=== PATIENT | female | born 1940 | race Caucasian/White ===

== ENCOUNTER → 2017-02-19 | Outpatient (CLI) | payer MEDICARE, OTHER ==
[~2017-02-19] MED LIST: ASA PO; GABA-528 PO; INHALER FOR ASTHMA; LEVO137T3 PO; OMEP20TA42 PO; TRAMADOL HCL; VALS80TA2 PO
--- NOTE | 2017-02-20 14:31 | RADRPT ---
PROCEDURE: CT abdomen without IV contrast. CLINICAL INDICATION: Abdominal pain. Possible hernia. TECHNIQUE: CT scan of the abdomen without contrast was performed on the [employer] volumetric [address] scanner. The patient was scanned without intravenous contrast. Coronal and sagittal reformatted lety ges were obtained from the axial source images. The CTDI vol is 17.31 mGy and the DLP is 460.81 mGy- cm. COMPARISON: None. FINDINGS: CT abdomen: The lung bases are clear. The heart size is not enlarged and is without pericardial thickening or e ffusion. The liver is normal in size and density and is without focal mass or intrahepatic biliary dilatation . The spleen is normal in size and homogeneous in density. The stomach is grossly unremarkable. T he pancreas as visualized is normal. The gallbladder has been removed. The common bile duct is mil dly dilated which may be physiologic. The adrenal glands are symmetric and normal. The kidneys are symmetrically unremarkable as well. A simple right renal cyst is seen in the midportion measuring 3. 8 x 2.9 cm in size. No renal calculus or obstructive uropathy or mass lesion is seen. The aorta is of normal in caliber. There is no retroperitoneal lymphadenopathy. The domonique hepatis region is clear. The visualized large bowel is stool-filled. The visualized small and large bowel a nd mesentery, as visualized, are otherwise unremarkable. The abdominal wall appears unremarkable. The surrounding osseous structures are unremarkable. No osteolytic or osteoblastic lesion is detect ed. IMPRESSION: 1. No acute pathology in the abdomen. 2. No CT evidence of a hernia. 3. Stool filled large bowel. 4. Status post cholecystectomy with likely physiologic biliary dilatation. RPTAT: HPNM Physician Christianne Date Time Electronically viewed and signed by Physician Christianne on 02/20/2017 14:30 /
== END | disposition home or self-care (01) ==
LOC: C/S 13:43
PROVIDERS: ATTEND Specialist
DX: R10.9 Unspecified abdominal pain (principal)
CPT/HCPCS: 74150

== ENCOUNTER 2017-09-06 11:22 | Emergency (ER) | END 2017-09-06 15:24 | disposition home or self-care (01) | DX: M79.601 Pain in right arm (principal); J45.909 Unspecified asthma, uncomplicated; I10 Essential (primary) hypertension | CPT/HCPCS: 73060; 80053; 84484; 85025; 85610; 85730; 93971; 96374; 96375; 96376; 99285; J1170; J1885; J2270; J2405 ==

== ENCOUNTER 2017-12-05 15:09 | Emergency (ER) | END 2017-12-05 20:39 | disposition left against medical advice (07) ==

== ENCOUNTER 2019-01-28 09:02 | Observation (INO) | payer MEDICARE, OTHER ==
[~2019-01-28] VITALS: Ht 162.6 cm; Wt 71.6 kg
[~2019-01-28 09:02] MED LIST changes: -ASA PO; -INHALER FOR ASTHMA; +NAPR-985 PO; -TRAMADOL HCL
[2019-01-28] MEDS ORDERED: DOCU-144 PO (10:39)
[2019-01-28] MEDS ORDERED: ZOLP10TA5 PO (10:40)
[2019-01-28] MEDS ORDERED: ASPI-817 PO (10:40)
[2019-01-28] MEDS ORDERED: HYDR25TA6 PO (10:41)
[2019-01-28] MEDS ORDERED: OMEP40CA6 PO (10:41)
[2019-01-28] MEDS ORDERED: HYDR-3980 PO (10:41)
[2019-01-28] MEDS ORDERED: LEVO137T3 PO (10:42)
[2019-01-28] MEDS ORDERED: AMLO5TAB4 PO (10:42)
[2019-01-28] MEDS ORDERED: MECL-77 PO (10:43)
[2019-01-28] MEDS ORDERED: GABA-528 PO (10:43)
[2019-01-28] MEDS ORDERED: SENN-120 PO (10:44)
[2019-01-28] MEDS ORDERED: BACL10TA PO (10:44)
[2019-01-28] MEDS ORDERED: POTASSIUM CHLORIDE (SR) 20 MEQ TAB PO STA (12:27)
[2019-01-28] MEDS ORDERED: ONDANSETRON 4 MG INJ IV PRN (12:30)
[2019-01-28] MEDS ORDERED: ACETAMINOPHEN 325 MG TAB PO PRN (12:30)
--- NOTE | 2019-01-28 12:52 | ERD ---
ER Documentation Chief Complaint Chief Complaint chest pain on and off for 4 months, multiple syncopal episodes, from PMD HPI This is a 78-year-old female with a past medical history of hypertension, hyperlipidemia, hypothyroidism, GERD, vertigo, cerebral aneurysm, chronic pain who is presenting with 4 months of waxing and waning midsternal left-sided pressure-like chest pain, shortness of breath and multiple near syncopal events. The patient reports intermittent episodes of feeling very dizzy like she is going to pass out, typically associated with this chest pain. The patient was evaluated in the office today and sent over to the emergency department for admission and cardiology evaluation. The patient reports mild chest pain at this time, but her symptoms have improved since yesterday. The patient denies feeling sick recently. The patient denies fever or chills. The patient has had no headache or vision changes. The patient does not endorse neck or back pain. The patient denies abdominal pain. The patient denies changes to bowel movements or urination. The patient has had no focal deficits. The patient has had no weakness or numbness or tingling to the face or extremities. ROS All systems reviewed and are negative except as per history of present illness. Medications Home Meds Reported Medications Sennosides* (Senna Lax*) 8.6 Mg Tablet, 1 TAB PO DAILY, TAB 01/28/19 Baclofen* (Baclofen*) 10 Mg Tablet, 10 MG PO TID, TAB 01/28/19 Meclizine Hcl* (Meclizine Hcl*) 25 Mg Tablet, 25 MG PO DAILY PRN for DIZZINESS, TAB 01/28/19 Gabapentin* (Gabapentin*) 800 Mg Tablet, 800 MG PO TID, #90 TAB 01/28/19 Levothyroxine Sodium* (Levothyroxine Sodium*) 137 Mcg Tablet, 137 MCG PO BEFORE BREAKFAST, #30 TAB 01/28/19 Amlodipine Besylate* (Norvasc*) 5 Mg Tablet, 5 MG PO DAILY, TAB 01/28/19 Hydrochlorothiazide* (Hydrochlorothiazide*) 25 Mg Tab, 25 MG PO DAILY, #30 TAB 01/28/19 Omeprazole* (Omeprazole*) 40 Mg Capsule.dr, 40 MG PO BID, #30 CAP 01/28/19 Hydrocodone/Acetaminophen ([place] 10-325 Tablet) 1 Each Tablet, 1 EACH PO BID, TAB 01/28/19 Zolpidem Tartrate* (Zolpidem Tartrate*) 10 Mg Tablet, 10 MG PO QHS PRN for INSOMNIA, #30 TAB 01/28/19 Aspirin* (Aspirin* EC) 81 Mg Tablet.dr, 81 MG PO DAILY, TAB 01/28/19 Docusate Sodium* (Colace*) 100 Mg Capsule, 100 MG PO DAILY, #30 CAP 01/28/19 Discontinued Reported Medications Levothyroxine Sodium* (Levothyroxine Sodium*) 137 Mcg Tablet, 137 MCG PO DAILY 03/11/13 Gabapentin* (Gabapentin*) 800 Mg Tablet, 800 MG PO QHS 07/22/11 Omeprazole (Omeprazole) 20 Mg Tablet.dr, 20 MG PO DAILY 07/22/11 Valsartan* (Diovan*) 80 Mg Tablet, 80 MG PO DAILY 07/22/11 Discontinued Scripts Naproxen* (Naprosyn*) 500 Mg Tablet, 500 MG PO BID PRN for PAIN AND/OR INFLAMMATION, #30 TAB Prov:PERRI CARPENTER MD 09/06/17 Allergies Allergies: Coded Allergies: No Known Drug Allergy (Verified Allergy, Unknown, 01/28/19) PMhx/Soc History of Surgery: Yes (RIGHT KNEE, thyroid sx,) Anesthesia Reaction: No Hx Neurological Disorder: Yes (CEREBRAL ANEURYSM) Hx Respiratory Disorders: Yes (ASTHMA) Hx Cardiac Disorders: Yes (HTN) Hx Psychiatric Problems: No Hx Miscellaneous Medical Probl: Yes (DVT ) Hx Alcohol Use: No Hx Substance Use: No Hx Tobacco Use: No FmHx Family History: No diabetes Physical Exam Vitals Vital Signs Date Temp Pulse Resp B/P (MAP) Pulse Ox O2 O2 Flow FiO2 Time Delivery Rate 01/28/19 Nasal 2 11:54 Cannula 01/28/19 97.6 70 20 151/65 98 09:10 (93) Physical Exam Const: No apparent distress, well-developed, well-nourished Head: Normocephalic, Atraumatic Eyes: Normal Conjunctiva. Extraocular movements intact. ENT: Normal External Ears, Nose and Mouth. Neck: Full range of motion. No meningismus. Resp: Clear to auscultation bilaterally, No wheezes, rales or rhonchi Cardio: Regular rate and rhythm. No murmurs, rubs or gallops Abd: Soft, non tender, non distended. Normal bowel sounds Skin: No petechiae or rashes Back: No midline tenderness. No CVA tenderness Ext: No cyanosis, or edema Neur: Awake and alert, oriented 4. Cranial nerves intact. No facial droop. Normal strength, sensation and coordination. Psych: Normal Mood and Affect Result Diagram: 01/28/19 1024 01/28/19 1024 Results 24 hrs Laboratory Tests Test 01/28/19 10:24 White Blood Count 6.5 10^3/ul Red Blood Count 4.63 10^6/ul Hemoglobin 11.6 g/dl Hematocrit 37.3 % Mean Corpuscular Volume 80.6 fl Mean Corpuscular Hemoglobin 25.1 pg Mean Corpuscular Hemoglobin Concent 31.1 g/dl Red Cell Distribution Width 15.8 % Platelet Count 277 10^3/UL Mean Platelet Volume 11.0 fl Immature Granulocytes % 0.500 % Neutrophils % 52.2 % Lymphocytes % 37.0 % Monocytes % 6.6 % Eosinophils % 3.1 % Basophils % 0.6 % Nucleated Red Blood Cells % 0.0 /100WBC Immature Granulocytes # 0.030 10^3/ul Neutrophils # 3.4 10^3/ul Lymphocytes # 2.4 10^3/ul Monocytes # 0.4 10^3/ul Eosinophils # 0.2 10^3/ul Basophils # 0.0 10^3/ul Nucleated Red Blood Cells # 0.0 10^3/ul Sodium Level 144 mmol/L Potassium Level 3.4 mmol/L Chloride Level 108 mmol/L Carbon Dioxide Level 28 mmol/L Anion Gap 8 Blood Urea Nitrogen 13 mg/dl Creatinine 0.68 mg/dl Est Glomerular Filtrat Rate mL/min mL/min Glucose Level 128 mg/dl Calcium Level 9.3 mg/dl Troponin I < 0.012 ng/ml Current Medications Medications Dose Sig/Miriam Start Time Status Last (Trade) Ordered Route PRN Stop Time Admin Dose Reason Admin Ondansetron 4 mg ER BRIDGE 01/28/19 HCl (Zofran PRN IV 12:30 01/29/19 Inj) NAUSEA/VOMITI 12:29 NG 650 mg ER BRIDGE 01/28/19 Acetaminophen PRN PO 12:30 01/29/19 (Tylenol .MILD PAIN 12:29 Tab) 1-3 OR TEMP Potassium 20 meq ONCE STAT 01/28/19 DC Chloride PO 12:27 01/28/19 (Klor-Con 20) 12:34 Procedures/MDM MDM The patient's presentation warrants further investigation. Previous medical records, if available, were reviewed. LABS The patient's laboratory testing was obtained and reviewed. No emergent treatment was required unless described below. CBC: No E/o systemic infection or severe anemia or thrombocytopenia Chemistry: No E/o severe acidosis or alkalosis or renal failure or diabetic ketoacidosis Troponin: No E/o acute ischemia TSH: Pending EKG EKG read by me: Rate/Rhythm: Regular rate and rhythm at a rate of 68 bpm Intervals: Normal [facility]: Normal Impression: No evidence of acute ischemia or arrhythmia IMAGING Imaging and Radiology interpretation reviewed. CXR FINDINGS: The lungs are clear. No focal opacification is seen. No pneumothorax or pleural effusion is seen. The heart size is prominent. Aortic atherosclerosis is present. The osseous structures are grossly unremarkable. Surgical clips are present in the lower neck. IMPRESSION: No evidence of acute cardiopulmonary disease. Cardiomegaly and aortic atherosclerosis. Electronically viewed and signed by .Bi Luis MD, on 01/28/2019 10:28 TREATMENT/DISPOSITION The patient presents for several months of waxing and waning chest pain and reported many syncopal events. The patient was evaluated in the office of her primary care physician who sent the patient here for admission and cardiology evaluation. I do believe this to be appropriate. The patient's EKG and troponin are reassuring. I have low suspicion for acute coronary syndrome. That said, I do feel the patient may benefit from serial assessment. I do not feel the patient requires aspirin emergently. I do not see evidence of any emergent cardiac arrhythmia, which includes but is not limited to heart block, Brugada syndrome or WPW. The patient has no heart murmurs or rales. There is no evidence of cardiomegaly on exam or chest xray. I have low suspicion for hypertrophic cardiomyopathy. I do not see evidence of CHF. The patient does not endorse any chest or pleuritic pain. The history is negative for bleeding or clotting disorders. The patient has not been involved in any recent prolonged trips or surgeries or hospitalizations. The patient has no calf tenderness or swelling. I have decreased suspicion for PE as the etiology of symptoms. The patient has a reassuring physical exam at this time. The patient is not clinically orthostatic. The patient is not dizzy. I have decreased suspicion for vertigo. The patient has no signs of emergent or symptomatic anemia. The patient does not have any emergent electrolyte or metabolic emergencies. The patient does have a history of hypothyroidism, but at this time I have decrease suspicion for an emergent thyroid pathology. The patient is not toxic appearing. I have decreased suspicion for an infectious etiology of symptoms. The patient has no focal deficits. The neurologic exam is reassuring. I have decreased suspicion for cerebral ischemia. There was no trauma or injury. The patient has a reported history of cerebral aneurysm, but she denies headache or neck stiffness or other symptoms concerning for SAH or other ICH. I have low suspicion for temporal arteritis, cavernous venous thrombosis, subdural hematoma, epidural hematoma, meningitis. ADMISSION At this time, I feel that the patient requires admission for further evaluation and management. The patient will be admitted to [facility] in accordance with the patient's insurance. The patient was accepted to telemetry at 12:30PM on 01/28. Disclaimer: Inadvertent spelling and grammatical errors are likely due to EHR/dictation software use and do not reflect on the overall quality of patient care. Note that the electronic time recorded on this note does not necessarily reflect the actual time of the patient encounter. Departure Diagnosis: Primary Impression: Syncope Syncope type: unspecified Qualified Codes: R55 - Syncope and collapse Additional Impressions: Chest pain Chest pain type: unspecified Qualified Codes: R07.9 - Chest pain, unspecified Normocytic anemia Hypokalemia Condition: Serious KEELEY APPLE MD Jan 28, 2019 12:49
[2019-01-28 17:31] VITALS: PULSE 67
[2019-01-28 17:59] VITALS: Ht 162.6 cm; Wt 71.6 kg
[2019-01-28] MEDS ORDERED: ZOLPIDEM 5 MG TAB PO PRN (18:30)
--- NOTE | 2019-01-28 19:54 | HKNOTE ---
DATE OF SERVICE: 01/28/2019 HISTORY OF PRESENT ILLNESS: The patient is 78 years old who has multiple medical problems, which inc lude hypertension, gait difficulty, low back ache, dizzy spell, hypothyroidism, sleep difficulty, in which the patient has multiple syncopal attack, in which the patient described that she was so dizzy that she has 2 falls, in which I recommended for her to go to the hospital for more evaluation and tr eatment in which the patient was admitted for Dr. Jean Baptiste's service. CURRENT MEDICATIONS: 1. Baclofen 10 mg 3 times a day. 2. Meclizine 25 mg once a day. 3. Gabapentin 800 mg 3 times a day. 4. Levothyroxine 7 mcg once a day. 5. Amlodipine 5 mg once a day. 6. Hydrochlorothiazide 25 mg once a day. 7. Omeprazole 40 mg once a day. 8. [place] 10/325 mg twice a day. 9. Ambien 10 mg once a day. 10. Aspirin 81 mg once a day. 11. Colace 100 mg once a day. 12. Baclofen 10 mg 3 times a day. PAST MEDICAL HISTORY: Hypertension, dyslipidemia, hypothyroidism, GERD, vertigo, cerebral aneurysm, chronic low backache. ALLERGIES: NO ALLERGY TO KNOWN MEDICATION. PHYSICAL EXAMINATION: NEUROLOGIC: The patient is alert, awake, following simple commands without difficulty; however, diff icult for second or third-step commands. CRANIAL NERVES: Cranial nerve II: Pupils equal on both sides, reactive to light. Cranial nerves II I, IV, and : Extraocular muscles are intact without nystagmus. Cranial nerve V: Equal sensation to face. Given nerve VII: Symmetrical face. Cranial nerve VIII: Decreased hearing bilaterally. C ranial IX and X: Elevates palate. Cranial nerve XI: Elevates shoulder 5/5. Cranial nerve XII: Wi th straight tongue. MOTOR: Decreased right hip flexion 4+/5. Decreased bilateral hand automation lead, 4+/5. Sensation decreased for glove and sock area for light touch and temperature. COORDINATION: [id number] test intact. CARDIOVASCULAR: Regular rate and rhythm. LUNGS: Equal breath sounds. ABDOMEN: Soft, relaxed, nondistended, no tenderness. ASSESSMENT AND PLAN: 1. The patient is a 78-year-old status post syncopal attack. I follow up the patient with MRI for h er brain for possible underlying transient ischemic attack. I will start her on Plavix instead of as pirin 75 mg once a day. I follow up the patient with carotid Doppler and 2D echocardiogram. 2. We will follow up the patient with sr. pricing analyst. 3. Keep the patient under fall precautions from now. 4. Underlying hypertension. Keep the blood pressure of 140/90 or less to avoid any new stroke. 5. Underlying insomnia with the patient is taking Ambien 10 mg once at night. 6. History of low back ache in which the patient is on [place] as needed. 7. Hypothyroidism, which the patient is on Levothyroxine 137. Follow up the patient with thyroid fu nction test. 8. Underlying disease in which the patient is under Meclizine 25 mg. Again, thank you, Dr. Jean Baptiste, for asking me to see the patient with you. Dictated By: CONRADO MOHAMUD MD NA/NTS Conf#: [id number] DID#: [id number] CC: CONRADO MOHAMUD MD; WILIAM JEAN BAPTISTE MD;*EndCC*
[2019-01-28 20:02] VITALS: BP 144/65; PULSE 68; RESP 18
[2019-01-28 20:08] VITALS: PULSE 97
[2019-01-28] MEDS: DOCUSATE SODIUM 100 MG CAP PO SCH ×2 (21:00→21:59)
[2019-01-28] MEDS: AMLODIPINE 5 MG TAB PO SCH ×2 (21:00→21:59)
[2019-01-28] MEDS: SENNA TAB PO SCH (21:00)
[2019-01-28] MEDS ORDERED: ASPIRIN (EC) 81 MG TAB PO SCH (21:00)
[2019-01-28] MEDS: GABAPENTIN 400 MG CAP PO SCH (21:51)
[2019-01-28] MEDS: BACLOFEN 10 MG TAB PO SCH (21:51)
[2019-01-28] MEDS: PANTOPRAZOLE (EC) 40 MG TAB PO SCH (21:51)
[2019-01-28] MEDS: HYDROCHLOROTHIAZIDE 25 MG TAB PO SCH (21:58)
[2019-01-28 23:57] VITALS: BP 133/69; PULSE 69; RESP 18
[2019-01-29] VITALS (9 sets, daily range): BP systolic 121–128; BP diastolic 58–60; PULSE 60–79; RESP 18–20
[2019-01-29] MEDS: PANTOPRAZOLE (EC) 40 MG TAB PO SCH ×2 (05:16→18:13)
[2019-01-29] MEDS: HYDROCODONE/APAP (10/325) TAB PO PRN ×2 (05:18→23:25)
[2019-01-29] MEDS: GABAPENTIN 400 MG CAP PO SCH ×3 (08:19→21:04)
[2019-01-29] MEDS: SENNA TAB PO SCH (08:19)
[2019-01-29] MEDS: BACLOFEN 10 MG TAB PO SCH ×3 (08:19→21:03)
[2019-01-29] MEDS: AMLODIPINE 5 MG TAB PO SCH (08:19)
[2019-01-29] MEDS: HYDROCHLOROTHIAZIDE 25 MG TAB PO SCH (08:19)
[2019-01-29] MEDS: DOCUSATE SODIUM 100 MG CAP PO SCH (08:19)
[2019-01-29] MEDS ORDERED: CLOPIDOGREL 75 MG TAB PO SCH (09:00)
[2019-01-29] MEDS: LEVOTHYROXINE 137 MCG TAB PO SCH (10:38)
--- NOTE | 2019-01-29 17:21 | RADRPT ---
Echocardiogram Report Patient Name: SAIRA DONISPatient ID: [id number] : 1940 (78y 2m)Study Date: 01/29/2019 7:53:09 AM Gender: FAccession #: [id number] Tech: LE Location: Ref.Physician: CONRADO MOHAMUD Height(Cm): BSA: Weight(Kg): Quality: GoodAccount #: Procedures: Echocardiographic Report: Transthoracic echocardiogram with complete 2D, M-Mode, and doppler examination. Indications: Chest Pain. Measurements: 2D/M Mode Doppler Measurement Value Normal Range Measurement Value Normal Range AoR Diam MM 2.7 [ 2.3 - 3.1 ] cm TONYA Vmax 2.2 [ 2.0 - 4.0 ] cm2 ACS MM 2.1 [ 2.7 - 3.3 ] cm AV Mean Melecio 1.0 [ 70.0 - 90.0 ] cm/sec LA/Ao MM 1.4 ratio AV Mean PG 5.0 [ 2.0 - 4.0 ] mmHg LA Dimen MM 3.8 AV Peak Melecio 1.5 [ 100.0 - 170.0 ] cm/sec LVIDd 2D 4.0 [ 3.8 - 5.2 ] cm AV Peak PG 8.0 [ 2.0 - 9.0 ] mmHg LVIDs 2D 2.8 [ 2.2 - 3.5 ] cm AV VTI 32.0 cm LVPWd 2D 1.1 [ 0.6 - 0.9 ] cm LVOT Peak Melecio 1.1 [ 70.0 - 110.0 ] cm/sec IVSd 2D 1.1 [ 0.6 - 0.9 ] cm LVOT Peak PG 5.0 [ 2.0 - 6.0 ] mmHg LVOT Diam 1.9 [ 2.1 - 2.5 ] cm MV E Peak Melecio 0.9 [ 60.0 - 130.0 ] cm/sec LVOT Area 2.8 cm2 MV A Peak Melecio 1.1 [ 100.0 - 120.0 ] cm/sec MV E/A 0.8 [ 0.8 - 1.5 ] ratio MV Decel Time 320 [ 104 - 258 ] msec Lat E` Melecio 0.1 [ 10.0 - 15.0 ] cm/sec Med E` Melecio 0.1 cm/sec MV E/A 0.8 [ 0.8 - 1.5 ] ratio TR Peak Melecio 2.4 [ 100.0 - 280.0 ] cm/sec TR Peak PG 22.0 mmHg PV Peak Melecio 0.8 [ 40.0 - 80.0 ] cm/sec PV Peak PG 2.0 mmHg Findings: Left Ventricle: Normal left ventricular systolic function. Normal left ventricular cavity size. Normal left ventricular wall thickness. Ejection fraction is visually estimated at 55-60 %. Tissue Doppler/Mitral Doppler indices are consistent with impaired relaxation (Stage I diastolic dysfunction). Right Ventricle: Normal right ventricular size. Normal right ventricular systolic function. Left Atrium: The left atrium is normal in size. Right Atrium: The right atrium is normal in size. Mitral Valve: Normal appearance and function of the mitral valve with trace physiologic regurgitation. Aortic Valve: Normal appearance of the aortic valve. No significant aortic stenosis or insufficiency. Tricuspid Valve: Normal appearance of the tricuspid valve. Estimated peak PA systolic pressure 25 mmHg. There is trace tricuspid regurgitation. Pulmonic Valve: Normal pulmonic valve appearance. There is trace pulmonic regurgitation. Pericardium: Normal pericardium with no significant pericardial effusion. Aorta: Normal aortic root. IVC: Normal size and normal respiratory collapse consistent with normal right atrial pressure. Conclusions: Normal left ventricular systolic function. Normal left ventricular cavity size. Normal left ventricular wall thickness. Ejection fraction is visually estimated at 55-60 %. Tissue Doppler/Mitral Doppler indices are consistent with impaired relaxation (Stage I diastolic dysfunction). ). Normal appearance and function of the mitral valve with trace physiologic regurgitation. Normal appearance of the tricuspid valve. Estimated peak PA systolic pressure 25 mmHg. There is trace tricuspid regurgitation. Normal pulmonic valve appearance. There is trace pulmonic regurgitation. n. Electronically Signed By: Saul Sosa 2019-01-29 17:21:11 PDT
--- NOTE | 2019-01-29 20:50 | HP ---
Date/Time of Note Date/Time of Note DATE: 01/29/19 TIME: 20:43 Assessment/Plan VTE Prophylaxis Risk score (from Ns)>0 risk: 3 SCD applied (from Ns): No SCD contraindicated: low risk/ambulating Pharmacological prophylaxis: LMWH Lines/Catheters IV Catheter Type (from Nrsg): Peripheral IV Central line still needed: No Urinary Cath still in place: No Reason Cath still needed: urinary retention Assessment/Plan Assessment/Plan 1. Chest pain bilateral shortness of breath radiating to the neck perspiration cardiology consult for further workup. 2. 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 Details are not very clear will obtain old chart. 3. Hypertension most of the time better controlled according to the patient 4. Obesity 5. Low back pain 6. Osteoarthritis of multiple joints 7. Hypothyroidism. 8 deep venous thrombosis of the right leg golf region. About 6 years ago. 9. Superficial phlebitis with frequent admissions to emergency room 10. History of having a herpes labialis infection of the leg. 11. Hearing impairment. 12 anxiety disorder. 13. Status post right knee arthroplasty 14. Anemia of chronic disease 15. Dizziness with recurrent episodes of fall 16. Unstable gait 17. s/p right knee replacement 18. Spinal pain Result Diagram: 01/29/19 0443 01/29/19 0443 Results 24hrs Laboratory Tests Test 01/29/19 04:43 White Blood Count 7.4 Red Blood Count 4.38 Hemoglobin 11.0 L Hematocrit 35.3 L Mean Corpuscular Volume 80.6 L Mean Corpuscular Hemoglobin 25.1 L Mean Corpuscular Hemoglobin Concent 31.2 L Red Cell Distribution Width 15.9 H Platelet Count 251 Mean Platelet Volume 11.0 H Immature Granulocytes % 0.400 Neutrophils % 45.9 Lymphocytes % 42.5 Monocytes % 7.1 Eosinophils % 3.6 Basophils % 0.5 Nucleated Red Blood Cells % 0.0 Immature Granulocytes # 0.030 Neutrophils # 3.4 Lymphocytes # 3.2 H Monocytes # 0.5 Eosinophils # 0.3 Basophils # 0.0 Nucleated Red Blood Cells # 0.0 Sodium Level 144 Potassium Level 3.7 Chloride Level 110 Carbon Dioxide Level 26 Anion Gap 8 Blood Urea Nitrogen 14 Creatinine 0.71 Est Glomerular Filtrat Rate mL/min Glucose Level 101 Calcium Level 9.3 HPI/ROS Admit Date/Time Admit Date/Time Jan 28, 2019 at 12:47 Hx of Present Illness Chest pain bilaterally on and off compromising breathing and radiating to the neck.With a history of hypertension, gait difficulty, low back ache, dizzy spell, hypothyroidism, sleep difficulty, s/p multiple syncopal attack, she had recent episodes of 2 falls, ROS This is 78 years old female with previous admission to the hospital was admitted for chest pain. The patient had multiple other medical problems including the aneurysm of anterior communicating artery of the brain, pain syndrome with hypertension. I was called to Dr. Vasquez to see the patient from internal medicine standpoint. Constitutional: diaphoresis, fatigue, nausea, weight change; No no complaints, No improved, No chills, No disoriented, No febrile, No poor po, No other Eyes: redness, visual change; No no complaints, No pain, No discharge, No other ENT: congestion, dysphagia; No no complaints, No bleeding, No pain, No discharge, No sore throat, No other Respiratory: cough, shortness of breath; No no complaints, No pain, No pleuritic pain, No sputum, No wheezing, No other Cardiovascular: chest pain, lightheadedness, orthopenea, palpitations, paroxysmal nocturnal dyspnea; No no complaints, No edema, No other Gastrointestinal: constipation, decreased appetite, flatus, passing stool; No no complaints, No pain, No blood, No diarrhea, No nausea, No vomiting, No other Genitourinary: dysuria, flank pain; No no complaints, No bleeding, No discharge, No hematuria, No other Musculoskeletal: back pain, bone/joint pain, neck pain, restricted range of motion; No no complaints, No swelling, No other Skin: pruritis; No no complaints, No bruising, No erythema, No laceration, No rash, No skin lesions, No other Neurologic: dizziness; No no complaints, No confusion, No focal-weakness, No headache, No syncope, No seizure, No other Endocrine: dry skin; No no complaints, No polyuria, No polydypsia, No temp intolerance, No weight change, No other Lymphatic: No no complaints, No adenopathy, No tender nodes, No lymphadema, No other Psychological: anxiety; No no complaints, No nl mood/affect, No confusion, No depression, No suicidal, No other Immunologic: No no complaints, No immunodeficiency, No pruritis, No rhinitis, No urticaria, No other PMH/Family/Social Past Medical History Medical History: angina, colitis, congestive heart failure, coronary artery disease, deep vein thrombosis, GERD, high cholesterol, hypertension, hypothyroid, irritable bowel syndrome, renal disease, urinary tract infection, other (Deep venous thrombosis and superficial thrombophlebitis of the right leg veins. Placement of Coumadin according to the latest report she was on a 3 mg daily.) Medications Current Medications Amlodipine Besylate (Norvasc) 5 mg DAILY PO Last administered on 01/29/19 08:19; Admin Dose 5 MG; Start 01/28/19 at 21:00 Baclofen (Lioresal) 10 mg TID PO Last administered on 01/29/19 13:02; Admin Dose 10 MG; Start 01/28/19 at 21:00 Docusate Sodium (Colace) 100 mg DAILY PO Last administered on 01/29/19 08:19; Admin Dose 100 MG; Start 01/28/19 at 21:00 Gabapentin (Neurontin) 800 mg TID PO Last administered on 01/29/19 13:02; Admin Dose 800 MG; Start 01/28/19 at 21:00 Hydrochlorothiazide (Hydrochlorothiazide) 25 mg DAILY PO Last administered on 01/29/19 08:19; Admin Dose 25 MG; Start 01/28/19 at 21:00 Acetaminophen/ Hydrocodone Bitart ([place] (10/325)) 1 tab BID PRN PO PAIN LEVEL 6-10 Last administered on 01/29/19 05:18; Admin Dose 1 TAB; Start 01/28/19 at 18 :30 Levothyroxine Sodium (Synthroid) 137 mcg BEFORE BREAKFAST PO Last administered on 01/29/19 10:38; Admin Dose 137 MCG; Start 01/29/19 at 07:00 Meclizine HCl (Antivert) 25 mg DAILY PRN PO DIZZINESS; Start 01/28/19 at 18:30 Senna (Senokot) 1 tab DAILY PO Last administered on 01/29/19 08:19; Admin Dose 1 TAB; Start 01/28/19 at 21:00 Zolpidem Tartrate (Ambien) 10 mg QHS PRN PO INSOMNIA; Start 01/28/19 at 18:30 Pantoprazole (Protonix Tab) 40 mg BID@0600,1800 PO Last administered on 01/29/19at 18:13; Admin Dose 40 MG; Start 01/28/19 at 21:00 Clopidogrel Bisulfate (plaVIX) 75 mg DAILY PO Last administered on 01/29/19at 08:19; Admin Dose 75 MG; Start 01/29/19 at 09:00; Status Hold Coded Allergies: No Known Drug Allergy (Verified Allergy, Unknown, 01/28/19) Past Surgical History Past Surgical Hx: noncontributory, other (Status post right breast surgery for a skin lesion with a flap.) Family History Significant Family History: no pertinent family hx, heart disease Social History Alcohol Use: none Smoking Status: Never smoker Drug Use: none Exam/Review of Systems Vital Signs Vitals Vital Signs Date Temp Pulse Resp B/P (MAP) Pulse Ox O2 O2 Flow FiO2 Time Delivery Rate 01/29/19 97.9 60 18 124/60 93 19:31 (81) 01/28/19 Room Air 15:25 01/28/19 2 11:54 Exam Constitutional: alert, oriented, well developed, distress Psych: anxiety, depression; No no complaints, No nl mood/affect, No confusion, No suicidal, No other Head: normocephalic, atraumatic Eyes: EOMI, nl lids, PERRL; No nl conjunctiva, No nl sclera, No icteric, No fundi, disc, No other ENMT: nl external ears & nose, nl lips & teeth (Dentures), tympanic membranes; No nl nasal mucosa & septum, No mucosa pink and moist, No intubated, No other Neck: non-tender, jvd, bruits, nuchal rigidity; No supple, No masses, No thyromegaly, No other Respiratory: clear to auscultation, normal air movement, diminished breath sounds; No congested cough, No crackles/rales, No intercostal retraction, No labored breathing, No respirations, No tactile fremitus, No wheezing, No other Cardiovascular: regular rate and rhythm, nl pulses, edema, systolic murmur Gastrointestinal: soft, nl liver, spleen, bowel sounds; No non-tender, No ascites, No distended, No firm, No hepatomegaly, No mass, No rebound or guarding, No splenomegaly, No surgical scars, No tender, No other Genitourinary - Female: nl adnexae, nl external genitalia; No CMT, No CVA tenderness, No uterus, No other Musculoskeletal: joint tenderness, muscle tone, muscle weakness; No nl extremities to inspection, No nl gait and stance, No range of motion, No spine non-tender, No swelling, No other Extremities: other (Varicose veins of both lower extremities with atrophy of muscles.); No normal pulses, No calf tenderness, No cyanosis, No clubbing, No edema, No pitting pedal edema, No palpable cord, No tenderness Neurological: nl mental status, nl speech, nl strength Skin: nl turgor, other (Status post postsurgical scar of the upper part of the right breast.); No rash or lesions, No diaphoresis, No ecchymosis, No laceration, No puncture Lymph: nl lymph nodes; No enlarged, No nontender, No other WILIAM JEAN BAPTISTE MD Jan 29, 2019 20:50
[2019-01-30] VITALS (13 sets, daily range): BP systolic 114–127; BP diastolic 53–61; PULSE 56–75; RESP 18–20
[2019-01-30] MEDS: LEVOTHYROXINE 137 MCG TAB PO SCH (06:40)
[2019-01-30] MEDS: PANTOPRAZOLE (EC) 40 MG TAB PO SCH ×2 (06:41→18:46)
--- NOTE | 2019-01-30 08:03 | HKNOTE ---
DATE OF SERVICE: HISTORY OF PRESENT ILLNESS: The patient is a 78-year-old status post hypertension, dyslipidemia, cer ebral aneurysm, hypothyroidism, chronic low backache. The patient has multiple syncopal attacks for which I advised the patient to come to the Emergency Room for more evaluation and treatment. The patient is taking multiple medications: Includes: 1. Plavix 75 mg once a day. 2. Synthroid 137 mcg once a day. 3. Norvasc 5 mg once a day. 4. Baclofen 10 mg 3 times a day. 5. Colace 100 mg 1 or 2 times a day as needed. 6. Neurontin 800 mg 3 times a day. 7. Hydrochlorothiazide 25 mg once a day. 8. Senna 1 tablet once a day. 9. Protonix 40 mg once a day. 10. [place] 10/325 mg twice a day as needed. 11. Antivert 25 mg twice a day as needed. 12. Ambien 10 mg once at night as needed. PHYSICAL EXAMINATION: GENERAL: Patient is alert, awake, oriented, following simple commands. CRANIAL NERVES: Cranial nerve II: Pupils equal on both sides, reactive to light. Cranial nerves II I, IV, and : Extraocular muscles are intact without nystagmus. Cranial nerve V: Equal sensation to face. Cranial nerve VII: Symmetrical face. Cranial nerve VIII: Decreased hearing bilaterally. Cranial IX and X: Elevates palate. Cranial nerve XI: Elevates shoulder 5/5. Cranial nerve XII: Straight tongue. 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 Sensation decreased for glove and sock area for light t ouch and temperature. Decreased right hip flexion 4+/5, limited by low backache. COORDINATION: Klvahs-wi-ejco test intact. CARDIOVASCULAR: Regular rate and rhythm. LUNGS: Equal breath sounds. ABDOMEN: Soft, relaxed, nondistended. No tenderness. ASSESSMENT AND PLAN: 1. The patient is a 78-year-old status post syncopal attack in which to order for her MRI for her br ain, carotid Doppler, 2D echo. 2. Keep the patient under telemetry. 3. Keep the patient under fall precaution. 4. Hypertension. Keep the blood pressure at the level of 140/90. 5. Underlying insomnia. Give the patient Ambien 5 mg once a day. 6. Low back ache in which the patient takes [place] twice a day. 7. Hypothyroidism. Keep the patient Levothyroxine 137 mcg. 8. Underlying dizziness. Give the patient Meclizine 25 mg. 9. 4 mm vascular flow voids in the anterior communicating artery which was seen on the MRI. Possibi lity of underlying aneurysm. I will order for her neurosurgery consult to see if any concern of the finding on the MRI and if she needs any surgical interference and to evaluate if we need to continue the antiplatelet for TIA prophylaxis and stroke prophylaxis. 10. Carotid Doppler. Does not show any hemodynamic insufficiency. Awaiting for cardiology evaluati on. Echocardiogram showed 55% to 60% ejection fraction. Again, thank you, Dr. Jean Baptiste, for asking me to see the patient with you. Dictated By: CONRADO MOHAMUD MD NA/NTS Conf#: [id number] DID#: [id number] CC: WILIAM JEAN BAPTISTE MD;*EndCC*
[2019-01-30] MEDS: BACLOFEN 10 MG TAB PO SCH ×3 (08:25→21:04)
[2019-01-30] MEDS: AMLODIPINE 5 MG TAB PO SCH (08:26)
[2019-01-30] MEDS: DOCUSATE SODIUM 100 MG CAP PO SCH (08:26)
[2019-01-30] MEDS: HYDROCHLOROTHIAZIDE 25 MG TAB PO SCH (08:26)
[2019-01-30] MEDS: SENNA TAB PO SCH (09:00)
[2019-01-30] MEDS: GABAPENTIN 400 MG CAP PO SCH ×3 (09:37→21:04)
[2019-01-30] MEDS ORDERED: NAPROXEN 500 MG TAB PO PRN (14:30)
--- NOTE | 2019-01-30 17:47 | PN ---
Date/Time of Note Date/Time of Note DATE: 01/30/19 TIME: 17:44 Assessment/Plan VTE Prophylaxis Risk score (from Ns)>0 risk: 3 SCD applied (from Ns): No SCD contraindicated: low risk/ambulating Pharmacological prophylaxis: LMWH Lines/Catheters IV Catheter Type (from Nrs): Peripheral IV Central line still needed: No Urinary Cath still in place: No Reason Cath still needed: urinary retention Assessment/Plan Assessment/Plan 1. Chest pain bilateral; radiating to the neck perspiration cardiology consult for further workup. 2. 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 Details are not very clear will obtain old chart. 3. Hypertension most of the time better controlled according to the patient 4. Obesity 5. Low back pain 6. Osteoarthritis of multiple joints 7. Hypothyroidism. 8 deep venous thrombosis of the right leg golf region. About 6 years ago. 9. Superficial phlebitis with frequent admissions to emergency room 10. History of having a herpes labialis infection of the leg. 11. Hearing impairment. 12 anxiety disorder. 13. Status post right knee arthroplasty 14. Anemia of chronic disease 15. Dizziness with recurrent episodes of fall 16. Unstable gait 17. Worsening of a shortness of breath 18; MRI of the brain :1. A 4 mm vascular flow void in the region of anterior communicating artery which is concerning for an aneurysm. 2. No acute intracranial hemorrhage or infarction. No intracranial enhancing abnormality. 3. Minimal chronic small vessel ischemic changes. 4. Mild generalized cerebral volume loss. Result Diagram: 01/29/19 0443 01/29/19 0443 Subjective 24 Hr Interval Summary Free Text/Dictation Today I have a pretty severe back pain. It is mainly interscapular areas low thoracic upper back worse while moving, compromising breathing and even turning in bed. Constitutional: diaphoresis, poor po, requiring IVF, requiring O2 Eyes: redness; No no complaints, No pain, No discharge, No visual change, No other ENT: congestion, discharge, dysphagia; No no complaints, No bleeding, No pain, No sore throat, No other Respiratory: cough, pleuritic pain, shortness of breath; No no complaints, No pain, No sputum, No wheezing, No other Cardiovascular: chest pain, lightheadedness, orthopenea; No no complaints, No edema, No palpitations, No paroxysmal nocturnal dyspnea, No other Gastrointestinal: constipation, decreased appetite; No no complaints, No pain, No blood, No diarrhea, No flatus, No nausea, No passing stool, No vomiting, No other Genitourinary: dysuria; No no complaints, No bleeding, No discharge, No flank pain, No hematuria, No other Musculoskeletal: back pain, bone/joint pain, neck pain Skin: bruising, erythema, laceration, pruritis; No no complaints, No rash, No skin lesions, No other Neurologic: confusion, dizziness, headache, syncope; No no complaints, No focal-weakness, No seizure, No other Endocrine: dry skin; No no complaints, No polyuria, No polydypsia, No temp intolerance, No other Lymphatic: No no complaints, No adenopathy, No tender nodes, No lymphadema, No other Psychological: anxiety, confusion, depression; No no complaints, No nl mood/affect, No suicidal, No other Immunologic: No no complaints, No immunodeficiency, No pruritis, No rhinitis, No urticaria, No other Exam/Review of Systems Exam Vitals Vital Signs Date Temp Pulse Resp B/P (MAP) Pulse Ox O2 O2 Flow FiO2 Time Delivery Rate 01/30/19 69 16:01 01/30/19 18 124/59 97 15:21 (80) 01/30/19 98.4 11:28 01/28/19 Room Air 15:25 01/28/19 2 11:54 Intake and Output 01/29/19 01/29/19 01/30/19 1515:00 23:00 07:00 IntakeIntake Total 680 ml 400 ml BalanceBalance 680 ml 400 ml Constitutional: alert, oriented, well developed, distress, frail; No non-verbal, No obese, No other Psych: anxiety, confusion, depression; No no complaints, No nl mood/affect, No suicidal, No other Head: normocephalic, atraumatic; No lacerations, No hematomas, No other Eyes: EOMI, nl lids, PERRL; No nl conjunctiva, No nl sclera, No icteric, No fundi, disc, No other ENMT: nl external ears & nose; No nl lips & teeth, No nl nasal mucosa & septum, No mucosa pink and moist, No intubated, No tympanic membranes, No other Neck: jvd, bruits, nuchal rigidity; No supple, No non-tender, No masses, No thyromegaly, No other Respiratory: normal air movement, congested cough, diminished breath sounds; No clear to auscultation, No crackles/rales, No intercostal retraction, No labored breathing, No respirations, No tactile fremitus, No wheezing, No other Cardiovascular: regular rate and rhythm, bruits; No nl pulses, No diastolic murmur, No edema, No gallop, No irregular rhythm, No jugular venous distention (JVD), No murmurs/extra sounds, No rub, No systolic murmur, No S3, No S4, No other Gastrointestinal: nl liver, spleen, non-tender; No soft, No ascites, No bowel sounds, No distended, No firm, No hepatomegaly, No mass, No rebound or guarding, No splenomegaly, No surgical scars, No tender, No other Genitourinary - Female: No nl adnexae, No nl external genitalia, No CMT, No CVA tenderness, No uterus, No other Musculoskeletal: joint tenderness, muscle tone, muscle weakness; No nl extremities to inspection, No nl gait and stance, No range of motion, No spine non-tender, No swelling, No other Neurological: MANAGER BABY II-XII intact, confused, DTR's symmetric; No nl mental status, No nl speech, No nl strength, No focal weakness, No lethargic, No numbness, No reflexes, No unresponsive, No other Skin: nl turgor (Right), ecchymosis; No rash or lesions, No diaphoresis, No laceration, No puncture, No other Medications Medication Current Medications Amlodipine Besylate (Norvasc) 5 mg DAILY PO Last administered on 01/30/19 08:26; Admin Dose 5 MG; Start 01/28/19 at 21:00 Baclofen (Lioresal) 10 mg TID PO Last administered on 01/30/19 12:; Admin Dose 10 MG; Start 01/28/19 at 21:00 Docusate Sodium (Colace) 100 mg DAILY PO Last administered on 01/30/19 08:26; Admin Dose 100 MG; Start 01/28/19 at 21:00 Gabapentin (Neurontin) 800 mg TID PO Last administered on 4/6/19at 12:19; Admin Dose 800 MG; Start 01/28/19 at 21:00 Hydrochlorothiazide (Hydrochlorothiazide) 25 mg DAILY PO Last administered on 01/30/19 08:26; Admin Dose 25 MG; Start 01/28/19 at 21:00 Acetaminophen/ Hydrocodone Bitart ([place] (10/325)) 1 tab BID PRN PO PAIN LEVEL 6-10 Last administered on 01/29/19at 23:25; Admin Dose 1 TAB; Start 01/28/19 at 18:30 Levothyroxine Sodium (Synthroid) 137 mcg BEFORE BREAKFAST PO Last administered on 01/30/19 06:40; Admin Dose 137 MCG; Start 01/29/19 at 07:00 Meclizine HCl (Antivert) 25 mg DAILY PRN PO DIZZINESS; Start 01/28/19 at 18:30 Senna (Senokot) 1 tab DAILY PO Last administered on 01/29/19 08:19; Admin Dose 1 TAB; Start 01/28/19 at 21:00 Zolpidem Tartrate (Ambien) 10 mg QHS PRN PO INSOMNIA; Start 01/28/19 at 18:30 Pantoprazole (Protonix Tab) 40 mg BID@0600,1800 PO Last administered on 01/30/19at 06:41; Admin Dose 40 MG; Start 01/28/19 at 21:00 Clopidogrel Bisulfate (plaVIX) 75 mg DAILY PO Last administered on 01/29/19 08:19; Admin Dose 75 MG; Start 01/29/19 at 09:00; Status Hold Naproxen (Naprosyn) 500 mg BID PRN PO MILD PAIN LEVEL 1-3; Start 01/30/19 at 14:30 WILIAM JEAN BAPTISTE MD Jan 30, 2019 17:47
[2019-01-31] VITALS (12 sets, daily range): BP systolic 109–131; BP diastolic 50–63; PULSE 53–88; RESP 17–21
[2019-01-31] MEDS: PANTOPRAZOLE (EC) 40 MG TAB PO SCH ×2 (05:58→17:49)
[2019-01-31] MEDS: LEVOTHYROXINE 137 MCG TAB PO SCH (05:59)
[2019-01-31] MEDS: MECLIZINE 25 MG TAB PO PRN (06:06)
--- NOTE | 2019-01-31 07:57 | HKNOTE ---
DATE OF SERVICE: 01/28/2019 HISTORY OF PRESENT ILLNESS: The patient is years old lady; however, multiple medical problems in the form of dyslipidemia, hypertension, hypothyroidism, chronic low back ache, chest pain, syncopal yoni ck in which the patient was admitted by the Emergency Room for more evaluation and treatment. The pa walt had an MRI which shows aneurysm in which I ordered for her the Plavix from now until we g et the neurosurgeon, who will see her for more evaluation and treatment. CURRENT MEDICATIONS: Include: 1. Synthroid 137 mcg once a day. 2. Norvasc 5 mg once a day. 3. Baclofen 10 mg 3 times a day. 4. Colace 100 mg 1 to 2 times a day. 5. Neurontin 800 mg 3 times a day. 6. Hydrochlorothiazide 25 mg once a day. 7. Senna 1 tablet once a day. 8. Protonix 40 mg once a day. 9. [place] 10/325 mg twice a day. 10. Antivert 25 mg as needed. 11. Ambien 10 mg once at night. PHYSICAL EXAMINATION: GENERAL: Today, the patient is alert, awake, oriented, following simple commands: Cranial nerve II: Pupils equal both sides, reactive to light. Cranial nerves III, IV and : Extraocular muscles in tact. No nystagmus. Cranial nerve V: Equal sensation to face. Cranial nerve VII: Symmetrical fac e. Cranial nerve VIII: Decreased hearing bilaterally. Cranial nerve IX and X: Elevates palate. C ranial nerve XI: Elevates shoulder 5/5. Cranial nerve XII: Straight tongue. 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 Sensation campus ambassador, decreased for glove and sock area for light touch and temperature. COORDINATION: [id number] test intact. HEART: Regular rate and rhythm. LUNGS: Equal breath sounds. ABDOMEN: Soft, relaxed, nondistended, no tenderness. ASSESSMENT AND PLAN: 1. The patient is a 78-year-old status post syncopal attack in which the patient had MRI, carotid Do ppler and 2D echo next recorded. Next, we will hold the patient Plavix until we get the result of th e aneurysm and opinion by neurosurgeon. 2. Underlying chest pain and possibility of cardiac reason for syncopal attack with the patient is f ollowed by cardiology consult. 3. History of hypertension in which the patient is on Norvasc and hydrochlorothiazide. Keep the blo od pressure at the level of 140/90 or less. 4. Underlying insomnia with the patient Ambien 5 mg once a day. 5. Status post low backache. Continue the patient [place] as needed. 6. Hypothyroidism. Give the patient Levothyroxine 137 mcg once a day. 7. Underlying dizziness, gave the patient Meclizine 25 mg. Again, thank you, Dr. Jean Baptiste, for asking me to see the patient with you. Dictated By: CONRADO MOHAMUD MD NA/NTS Conf#: [id number] DID#: [id number] CC: WILIAM JEAN BAPTISTE MD;*End*
[2019-01-31] MEDS: HYDROCHLOROTHIAZIDE 25 MG TAB PO SCH (08:20)
[2019-01-31] MEDS: BACLOFEN 10 MG TAB PO SCH ×3 (08:21→20:51)
[2019-01-31] MEDS: GABAPENTIN 400 MG CAP PO SCH ×3 (08:21→20:52)
[2019-01-31] MEDS: DOCUSATE SODIUM 100 MG CAP PO SCH (08:21)
[2019-01-31] MEDS: SENNA TAB PO SCH (08:22)
[2019-01-31] MEDS: AMLODIPINE 5 MG TAB PO SCH (08:22)
[2019-01-31] MEDS ORDERED: NA PHOSPHATE/BIPHOS 133 ML ENEMA PR ONE (14:00)
--- NOTE | 2019-01-31 14:48 | PN ---
Date/Time of Note Date/Time of Note DATE: 01/31/19 TIME: 14:39 Assessment/Plan VTE Prophylaxis Risk score (from Ns)>0 risk: 3 SCD applied (from Ns): No SCD contraindicated: low risk/ambulating Pharmacological prophylaxis: LMWH Lines/Catheters IV Catheter Type (from Nrs): Peripheral IV Central line still needed: No Urinary Cath still in place: No Reason Cath still needed: urinary retention Assessment/Plan Assessment/Plan 1. Chest pain bilateral shortness of breath radiating to the neck perspiration cardiology consult for further workup. 2. 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 Details are not very clear will obtain old chart. 3. Hypertension most of the time better controlled according to the patient 4. Obesity 5. Low back pain 6. Osteoarthritis of multiple joints 7. Hypothyroidism. 8 deep venous thrombosis of the right leg golf region. About 6 years ago. 9. Superficial phlebitis with frequent admissions to emergency room 10. History of having a herpes labialis infection of the leg. 11. Hearing impairment. 12 anxiety disorder. 13. Status post right knee arthroplasty 14. Anemia of chronic disease 15. Dizziness with recurrent episodes of fall 16. Unstable gait Result Diagram: 01/31/19 0512 01/31/19 0512 Results 24hrs Laboratory Tests Test 01/30/19 17:47 01/31/19 05:12 Blood Gas Specimen Source Blood arterial Arterial Blood Date Drawn 01/30/2019 7:00:55 PM Arterial Blood pH (Temp corrected) 7.435 Arterial Blood pCO2 (Temp correct) 43.8 Arterial Blood pO2 (Temp corrected) 71.4 L Arterial Blood HCO3 28.7 H Arterial Blood Base Excess 4.0 H Arterial Blood Oxygen Saturation 93.8 L Twin Test ACCEPTAB Arterial Blood Gas Puncture Site Right Radial Arterial Blood Carboxyhemoglobin 0.3 Arterial Blood Methemoglobin 0 Blood Gas A-a O2 Differential 25.9 H Oxyhemoglobin Percent 93.5 Blood Gas Temperature 37.0 Blood Gas Modality ROOM AIR FiO2 21.0 Blood Gas Notified Whom MA Blood Gas Notified Time 01/30/2019 7:20:34 PM White Blood Count 7.3 Red Blood Count 4.54 Hemoglobin 11.5 L Hematocrit 35.7 L Mean Corpuscular Volume 78.6 L Mean Corpuscular Hemoglobin 25.3 L Mean Corpuscular Hemoglobin Concent 32.2 Red Cell Distribution Width 15.5 H Platelet Count 252 Mean Platelet Volume 11.4 H Immature Granulocytes % 0.100 Neutrophils % 51.3 Lymphocytes % 37.8 Monocytes % 7.0 Eosinophils % 3.4 Basophils % 0.4 Nucleated Red Blood Cells % 0.0 Immature Granulocytes # 0.010 Neutrophils # 3.7 Lymphocytes # 2.8 Monocytes # 0.5 Eosinophils # 0.3 Basophils # 0.0 Nucleated Red Blood Cells # 0.0 Sodium Level 142 Potassium Level 3.7 Chloride Level 105 Carbon Dioxide Level 29 Anion Gap 8 Blood Urea Nitrogen 15 Creatinine 0.72 Est Glomerular Filtrat Rate mL/min Glucose Level 106 Calcium Level 9.3 Total Bilirubin 0.4 Direct Bilirubin 0.00 Indirect Bilirubin 0.4 Aspartate Amino Transf (AST/SGOT) 43 Alanine Aminotransferase (ALT/SGPT) 65 Alkaline Phosphatase 84 Total Protein 6.6 Albumin 3.7 Globulin 2.90 Albumin/Globulin Ratio 1.27 Subjective 24 Hr Interval Summary Free Text/Dictation Thoracal and lumbar sacral pain worse than yesterday. Movements are exacerbating the pain. Difficulty to stand up and walk secondary to pain and dizziness. Constitutional: improved; No no complaints, No chills, No diaphoresis, No disoriented, No febrile, No poor po, No requiring IVF, No requiring O2, No other Eyes: redness; No no complaints, No pain, No discharge, No visual change, No other ENT: congestion, dysphagia; No no complaints, No bleeding, No pain, No discharge, No sore throat, No other Respiratory: cough, pleuritic pain, shortness of breath; No no complaints, No pain, No sputum, No wheezing, No other Cardiovascular: chest pain, orthopenea, palpitations; No no complaints, No edema, No lightheadedness, No paroxysmal nocturnal dyspnea, No other Gastrointestinal: constipation, decreased appetite, flatus, nausea; No no complaints, No pain, No blood, No diarrhea, No passing stool, No vomiting, No other Genitourinary: flank pain; No no complaints, No bleeding, No dysuria, No discharge, No hematuria, No other Musculoskeletal: back pain, bone/joint pain; No no complaints, No neck pain, No restricted range of motion, No swelling, No other Skin: bruising, pruritis, rash; No no complaints, No erythema, No laceration, No skin lesions, No other Neurologic: dizziness, focal-weakness, headache; No no complaints, No confusion, No syncope, No seizure, No other Endocrine: dry skin; No no complaints, No polyuria, No polydypsia, No temp intolerance, No other Lymphatic: tender nodes; No no complaints, No adenopathy, No lymphadema, No other Psychological: anxiety, confusion, depression; No no complaints, No nl mood/affect, No suicidal, No other Immunologic: No no complaints, No immunodeficiency, No pruritis, No rhinitis, No urticaria, No other Exam/Review of Systems Exam Vitals Vital Signs Date Temp Pulse Resp B/P (MAP) Pulse Ox O2 O2 Flow FiO2 Time Delivery Rate 01/31/19 98.0 88 19 131/60 96 11:33 (83) 01/28/19 Room Air 15:25 01/28/19 2 11:54 Intake and Output 01/30/19 01/30/19 01/31/19 1515:00 23:00 07:00 IntakeIntake Total 950 ml 300 ml BalanceBalance 950 ml 300 ml Constitutional: alert, oriented, well developed, distress, frail, obese; No non-verbal, No other Psych: anxiety, depression; No no complaints, No nl mood/affect, No confusion, No suicidal, No other Head: normocephalic, atraumatic; No lacerations, No hematomas, No other Eyes: EOMI, nl lids, PERRL; No nl conjunctiva, No nl sclera, No icteric, No fundi, disc, No other ENMT: No nl external ears & nose, No nl lips & teeth, No nl nasal mucosa & septum, No mucosa pink and moist, No intubated, No tympanic membranes, No other Neck: jvd; No supple, No non-tender, No bruits, No masses, No thyromegaly, No nuchal rigidity, No other Respiratory: clear to auscultation, congested cough, diminished breath sounds; No normal air movement, No crackles/rales, No intercostal retraction, No labored breathing, No respirations, No tactile fremitus, No wheezing, No other Cardiovascular: regular rate and rhythm, nl pulses, bruits, edema, systolic murmur Gastrointestinal: soft, nl liver, spleen, bowel sounds, distended; No non-tender, No ascites, No firm, No hepatomegaly, No mass, No rebound or guarding, No splenomegaly, No surgical scars, No tender, No other Genitourinary - Female: No nl adnexae, No nl external genitalia, No CMT, No CVA tenderness, No uterus, No other Musculoskeletal: nl gait and stance, joint tenderness, muscle tone, muscle weakness; No nl extremities to inspection, No range of motion, No spine non-tender, No swelling, No other Extremities: normal pulses; No calf tenderness, No cyanosis, No clubbing, No edema, No pitting pedal edema, No palpable cord, No tenderness, No other Neurological: 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, No nl mental status, No nl speech, No nl strength, No confused, No DTR's symmetric, No focal weakness, No lethargic, No numbness, No reflexes, No unresponsive, No other Skin: nl turgor, ecchymosis; No rash or lesions, No diaphoresis, No laceration, No puncture, No other Lymph: No nl lymph nodes, No enlarged, No nontender, No other Results Results 24hrs Laboratory Tests Test 01/30/19 17:47 01/31/19 05:12 Blood Gas Specimen Source Blood arterial Arterial Blood Date Drawn 01/30/2019 7:00:55 PM Arterial Blood pH (Temp corrected) 7.435 Arterial Blood pCO2 (Temp correct) 43.8 Arterial Blood pO2 (Temp corrected) 71.4 L Arterial Blood HCO3 28.7 H Arterial Blood Base Excess 4.0 H Arterial Blood Oxygen Saturation 93.8 L Twin Test ACCEPTAB Arterial Blood Gas Puncture Site Right Radial Arterial Blood Carboxyhemoglobin 0.3 Arterial Blood Methemoglobin 0 Blood Gas A-a O2 Differential 25.9 H Oxyhemoglobin Percent 93.5 Blood Gas Temperature 37.0 Blood Gas Modality ROOM AIR FiO2 21.0 Blood Gas Notified Whom MA Blood Gas Notified Time 01/30/2019 7:20:34 PM White Blood Count 7.3 Red Blood Count 4.54 Hemoglobin 11.5 L Hematocrit 35.7 L Mean Corpuscular Volume 78.6 L Mean Corpuscular Hemoglobin 25.3 L Mean Corpuscular Hemoglobin Concent 32.2 Red Cell Distribution Width 15.5 H Platelet Count 252 Mean Platelet Volume 11.4 H Immature Granulocytes % 0.100 Neutrophils % 51.3 Lymphocytes % 37.8 Monocytes % 7.0 Eosinophils % 3.4 Basophils % 0.4 Nucleated Red Blood Cells % 0.0 Immature Granulocytes # 0.010 Neutrophils # 3.7 Lymphocytes # 2.8 Monocytes # 0.5 Eosinophils # 0.3 Basophils # 0.0 Nucleated Red Blood Cells # 0.0 Sodium Level 142 Potassium Level 3.7 Chloride Level 105 Carbon Dioxide Level 29 Anion Gap 8 Blood Urea Nitrogen 15 Creatinine 0.72 Est Glomerular Filtrat Rate mL/min Glucose Level 106 Calcium Level 9.3 Total Bilirubin 0.4 Direct Bilirubin 0.00 Indirect Bilirubin 0.4 Aspartate Amino Transf (AST/SGOT) 43 Alanine Aminotransferase (ALT/SGPT) 65 Alkaline Phosphatase 84 Total Protein 6.6 Albumin 3.7 Globulin 2.90 Albumin/Globulin Ratio 1.27 Medications Medication Current Medications Amlodipine Besylate (Norvasc) 5 mg DAILY PO Last administered on 01/31/19 08:22; Admin Dose 5 MG; Start 01/28/19 at 21:00 Baclofen (Lioresal) 10 mg TID PO Last administered on 01/31/19 13:36; Admin Dose 10 MG; Start 01/28/19 at 21:00 Docusate Sodium (Colace) 100 mg DAILY PO Last administered on 01/31/19 08:21; Admin Dose 100 MG; Start 01/28/19 at 21:00 Gabapentin (Neurontin) 800 mg TID PO Last administered on 01/31/19 13:36; Admin Dose 800 MG; Start 01/28/19 at 21:00 Hydrochlorothiazide (Hydrochlorothiazide) 25 mg DAILY PO Last administered on 01/31/19 08:20; Admin Dose 25 MG; Start 01/28/19 at 21:00 Acetaminophen/ Hydrocodone Bitart ([place] (10/325)) 1 tab BID PRN PO PAIN LEVEL 6-10 Last administered on 01/29/19 23:25; Admin Dose 1 TAB; Start 01/28/19 at 18: 30 Levothyroxine Sodium (Synthroid) 137 mcg BEFORE BREAKFAST PO Last administered on 01/31/19 05:59; Admin Dose 137 MCG; Start 01/29/19 at 07:00 Meclizine HCl (Antivert) 25 mg DAILY PRN PO DIZZINESS Last administered on 4/7/19at 06:06; Admin Dose 25 MG; Start 01/28/19 at 18:30 Senna (Senokot) 1 tab DAILY PO Last administered on 01/29/19at 08:19; Admin Dose 1 TAB; Start 01/28/19 at 21:00 Zolpidem Tartrate (Ambien) 10 mg QHS PRN PO INSOMNIA; Start 01/28/19 at 18:30 Pantoprazole (Protonix Tab) 40 mg BID@0600,1800 PO Last administered on 01/31/19at 05:58; Admin Dose 40 MG; Start 01/28/19 at 21:00 Clopidogrel Bisulfate (plaVIX) 75 mg DAILY PO Last administered on 01/29/19at 08:19; Admin Dose 75 MG; Start 01/29/19 at 09:00; Status Hold Naproxen (Naprosyn) 500 mg BID PRN PO MILD PAIN LEVEL 1-3; Start 01/30/19 at 14:30 Polyethylene Glycol (Miralax) 17 gm BID GTB ; Start 01/31/19 at 21:00 WILIAM JEAN BAPTISTE MD Jan 31, 2019 14:48
--- NOTE | 2019-01-31 18:21 | CONS ---
DATE OF ADMISSION: 01/28/2019 DATE OF CONSULTATION: HISTORY OF PRESENT ILLNESS: The patient is 78 years old, status post syncopal attack, chest pain, ce rebral aneurysm, in which the patient was admitted for more evaluation and treatment. CURRENT MEDICATIONS: Include: 1. Baclofen 10 mg 3 times a day. 2. Synthroid 137 mcg once a day. 3. Norvasc 5 mg once a day. 4. Colace 100 mg once a day. 5. Neurontin 800 mg 3 times a day. 6. Hydrochlorothiazide 25 mg once a day. 7. Protonix 40 mg once a day. 8. [place] 10/325 mg twice a day as needed. 9. Antivert 25 mg as needed. 10. Ambien 10 mg once at night. PHYSICAL EXAMINATION: GENERAL: On exam today, the patient is alert, awake, oriented, following simple commands. CRANIAL NERVES: Cranial nerve II: Pupils equal on both sides, reactive to light. Cranial nerves II I, IV, and : Extraocular muscles intact, without nystagmus. Cranial nerve V: Equal sensation to face. Cranial nerve VII: Symmetrical face. Cranial nerve VIII: Decreased hearing bilaterally. Cr anial nerves IX and X: Elevates palate. Cranial nerve XI: Elevates shoulder 5/5. Cranial nerve XI I: With straight tongue. 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 SENSATION: Decreased for glove and sock area for light touch and temperature. COORDINATION: [id number] test intact. HEART: Regular rate and rhythm. LUNGS: Equal breath sounds. ABDOMEN: Soft, relaxed, nondistended. No tenderness. ASSESSMENT AND PLAN: 1. The patient is a 78-year-old status post syncopal attack, in which the patient had an MRI with MR A, shows to have aneurysm, which the patient mentioned she had before, followed by neurosurgery in a. m. 2. Underlying chest pain, possibility of cardiac reason with syncopal attack, followed by cardiology . 3. History of hypertension. Keep the patient on Norvasc and hydrochlorothiazide. 4. Underlying insomnia. Will give the patient Ambien 5 mg once a day. 5. Status post low back ache. Will give the patient Hastings as needed. 6. Hypothyroidism. Give the patient levothyroxine 137 mcg once a day. 7. Underlying dizziness, which the patient has some improvement with meclizine 25 mg. Thank you, Dr. Jean Baptiste, for asking me to see the patient with you. Dictated By: CONRADO MOHAMUD MD NA/NTS Conf#: [id number] DID#: [id number] CC: WILIAM JEAN BAPTISTE MD;*EndCC*
[2019-01-31] MEDS: POLYETHYLENE GLYCOL 17 GM PACKET GTB SCH (20:51)
[2019-02-01] VITALS (11 sets, daily range): BP systolic 112–140; BP diastolic 55–65; PULSE 58–75; RESP 18–20
[2019-02-01] MEDS: HYDROCODONE/APAP (10/325) TAB PO PRN (04:53)
[2019-02-01] MEDS: PANTOPRAZOLE (EC) 40 MG TAB PO SCH ×2 (06:43→17:36)
[2019-02-01] MEDS: LEVOTHYROXINE 137 MCG TAB PO SCH (06:43)
[2019-02-01] MEDS: POLYETHYLENE GLYCOL 17 GM PACKET GTB SCH ×2 (08:46→21:00)
[2019-02-01] MEDS: GABAPENTIN 400 MG CAP PO SCH ×3 (08:46→21:38)
[2019-02-01] MEDS: SENNA TAB PO SCH (08:46)
[2019-02-01] MEDS: BACLOFEN 10 MG TAB PO SCH ×3 (08:47→21:38)
[2019-02-01] MEDS: AMLODIPINE 5 MG TAB PO SCH (08:47)
[2019-02-01] MEDS: MECLIZINE 25 MG TAB PO PRN (08:47)
[2019-02-01] MEDS: DOCUSATE SODIUM 100 MG CAP PO SCH (08:47)
[2019-02-01] MEDS: HYDROCHLOROTHIAZIDE 25 MG TAB PO SCH (08:53)
--- NOTE | 2019-02-01 11:53 | CONS ---
Assessment/Plan Assessment/Plan Assessment/Plan (Daily) Neurosurgery Unruptured Acom Aneurysm Patient aware of aneurysm x 10 years and following with her Neurosurgeon at [facility] Plan no Neurosurgical intervention follow up with her NS team complete cardiac workup Consultation Date/Type/Reason Admit Date/Time Jan 28, 2019 at 12:47 Date/Time of Note DATE: 02/01/19 TIME: 11:41 Hx of Present Illness Neurosurgery Consult Note CC: Syncopal episode HPI: 78 y/o female presented to ED after syncopal episode, likely cardiac in origin with workup in progress. MRI/MRA Brain showed unruptured acom aneursym which patient states she has been aware of x 10 years and being followed by her Neurosurgeon at [facility]. pmh/psx: per hpi/chart Past Medical History Medical History: angina, colitis, congestive heart failure, coronary artery disease, deep vein thrombosis, GERD, high cholesterol, hypertension, hypothyroid, irritable bowel syndrome, renal disease, urinary tract infection, other (Deep venous thrombosis and superficial thrombophlebitis of the right leg veins. Placement of Coumadin according to the latest report she was on a 3 mg daily.) Home Meds Reported Medications Sennosides* (Senna Lax*) 8.6 Mg Tablet, 1 TAB PO DAILY, TAB 01/28/19 Baclofen* (Baclofen*) 10 Mg Tablet, 10 MG PO TID, TAB 01/28/19 Meclizine Hcl* (Meclizine Hcl*) 25 Mg Tablet, 25 MG PO DAILY PRN for DIZZINESS, TAB 01/28/19 Gabapentin* (Gabapentin*) 800 Mg Tablet, 800 MG PO TID, #90 TAB 01/28/19 Levothyroxine Sodium* (Levothyroxine Sodium*) 137 Mcg Tablet, 137 MCG PO BEFORE BREAKFAST, #30 TAB 01/28/19 Amlodipine Besylate* (Norvasc*) 5 Mg Tablet, 5 MG PO DAILY, TAB 01/28/19 Hydrochlorothiazide* (Hydrochlorothiazide*) 25 Mg Tab, 25 MG PO DAILY, #30 TAB 01/28/19 Omeprazole* (Omeprazole*) 40 Mg Capsule.dr, 40 MG PO BID, #30 CAP 01/28/19 Hydrocodone/Acetaminophen ([place] 10-325 Tablet) 1 Each Tablet, 1 EACH PO BID, TAB 01/28/19 Zolpidem Tartrate* (Zolpidem Tartrate*) 10 Mg Tablet, 10 MG PO QHS PRN for INSOMNIA, #30 TAB 01/28/19 Aspirin* (Aspirin* EC) 81 Mg Tablet.dr, 81 MG PO DAILY, TAB 01/28/19 Docusate Sodium* (Colace*) 100 Mg Capsule, 100 MG PO DAILY, #30 CAP 01/28/19 Discontinued Reported Medications Levothyroxine Sodium* (Levothyroxine Sodium*) 137 Mcg Tablet, 137 MCG PO DAILY 03/11/13 Gabapentin* (Gabapentin*) 800 Mg Tablet, 800 MG PO QHS 07/22/11 Omeprazole (Omeprazole) 20 Mg Tablet.dr, 20 MG PO DAILY 07/22/11 Valsartan* (Diovan*) 80 Mg Tablet, 80 MG PO DAILY 07/22/11 Discontinued Scripts Naproxen* (Naprosyn*) 500 Mg Tablet, 500 MG PO BID PRN for PAIN AND/OR INFLAMMATION, #30 TAB Prov:PERRI CARPENTER MD 09/06/17 Medications Current Medications Amlodipine Besylate (Norvasc) 5 mg DAILY PO Last administered on 02/01/19 08:47; Admin Dose 5 MG; Start 01/28/19 at 21:00 Baclofen (Lioresal) 10 mg TID PO Last administered on 02/01/19 08:47; Admin Dose 10 MG; Start 01/28/19 at 21:00 Docusate Sodium (Colace) 100 mg DAILY PO Last administered on 02/01/19 08:47; Admin Dose 100 MG; Start 01/28/19 at 21:00 Gabapentin (Neurontin) 800 mg TID PO Last administered on 02/01/19 08:46; Admin Dose 800 MG; Start 01/28/19 at 21:00 Hydrochlorothiazide (Hydrochlorothiazide) 25 mg DAILY PO Last administered on 02/01/19 08:53; Admin Dose 25 MG; Start 01/28/19 at 21:00 Acetaminophen/ Hydrocodone Bitart ([place] (10/325)) 1 tab BID PRN PO PAIN LEVEL 6-10 Last administered on 02/01/19 04:53; Admin Dose 1 TAB; Start 01/28/19 at 18:30 Levothyroxine Sodium (Synthroid) 137 mcg BEFORE BREAKFAST PO Last administered on 02/01/19 06:43; Admin Dose 137 MCG; Start 01/29/19 at 07:00 Meclizine HCl (Antivert) 25 mg DAILY PRN PO DIZZINESS Last administered on 02/01/19 08:47; Admin Dose 25 MG; Start 01/28/19 at 18:30 Senna (Senokot) 1 tab DAILY PO Last administered on 02/01/19 08:46; Admin Dose 1 TAB; Start 01/28/19 at 21:00 Zolpidem Tartrate (Ambien) 10 mg QHS PRN PO INSOMNIA; Start 01/28/19 at 18:30 Pantoprazole (Protonix Tab) 40 mg BID@0600,1800 PO Last administered on 02/01 06:43; Admin Dose 40 MG; Start 01/28/19 at 21:00 Clopidogrel Bisulfate (plaVIX) 75 mg DAILY PO Last administered on 01/29/19 08:19; Admin Dose 75 MG; Start 01/29/19 at 09:00; Status Hold Naproxen (Naprosyn) 500 mg BID PRN PO MILD PAIN LEVEL 1-3; Start 01/30/19 at 14:30 Polyethylene Glycol (Miralax) 17 gm BID GTB Last administered on 02/01/19 08:46; Admin Dose 17 GM; Start 01/31/19 at 21:00 Allergies: Coded Allergies: No Known Drug Allergy (Verified Allergy, Unknown, 01/28/19) Past Surgical History Past Surgical Hx: noncontributory, other (Status post right breast surgery for a skin lesion with a flap.) Social History Alcohol Use: none Smoking Status: Never smoker Drug Use: none Exam/Review of Systems Exam Vitals Vital Signs Date Temp Pulse Resp B/P (MAP) Pulse Ox O2 O2 Flow FiO2 Time Delivery Rate 02/01/19 98.0 60 18 117/55 98 11:23 (75) 02/01/19 Nasal 2.0 07:46 Cannula Intake and Output 01/31/19 01/31/19 02/01/19 1515:00 23:00 07:00 IntakeIntake Total 700 ml 450 ml OutputOutput Total 800 ml BalanceBalance -100 ml 450 ml Constitutional: alert Psych: no complaints Head: normocephalic Eyes: nl conjunctiva, EOMI, PERRL ENMT: nl external ears & nose Neck: other (previous left neck surgery) Cardiovascular: regular rate and rhythm Results Result Diagram: 01/31/1912 01/31/19 0512 Medications Medication Current Medications Amlodipine Besylate (Norvasc) 5 mg DAILY PO Last administered on 02/01/19 08:47; Admin Dose 5 MG; Start 01/28/19 at 21:00 Baclofen (Lioresal) 10 mg TID PO Last administered on 02/01/19 08:47; Admin Dose 10 MG; Start 01/28/19 at 21:00 Docusate Sodium (Colace) 100 mg DAILY PO Last administered on 02/01/19 08:47; Admin Dose 100 MG; Start 01/28/19 at 21:00 Gabapentin (Neurontin) 800 mg TID PO Last administered on 02/01/19 08:46; Admin Dose 800 MG; Start 01/28/19 at 21:00 Hydrochlorothiazide (Hydrochlorothiazide) 25 mg DAILY PO Last administered on 02/01/19 08:53; Admin Dose 25 MG; Start 01/28/19 at 21:00 Acetaminophen/ Hydrocodone Bitart ([place] (10/325)) 1 tab BID PRN PO PAIN LEVEL 6-10 Last administered on 02/01/19 04:53; Admin Dose 1 TAB; Start 01/28/19 at 18:30 Levothyroxine Sodium (Synthroid) 137 mcg BEFORE BREAKFAST PO Last administered on 02/01/19 06:43; Admin Dose 137 MCG; Start 01/29/19 at 07:00 Meclizine HCl (Antivert) 25 mg DAILY PRN PO DIZZINESS Last administered on 02/01/19 08:47; Admin Dose 25 MG; Start 01/28/19 at 18:30 Senna (Senokot) 1 tab DAILY PO Last administered on 02/01/19 08:46; Admin Dose 1 TAB; Start 01/28/19 at 21:00 Zolpidem Tartrate (Ambien) 10 mg QHS PRN PO INSOMNIA; Start 01/28/19 at 18:30 Pantoprazole (Protonix Tab) 40 mg BID@0600,1800 PO Last administered on 02/01/19 06:43; Admin Dose 40 MG; Start 01/28/19 at 21:00 Clopidogrel Bisulfate (plaVIX) 75 mg DAILY PO Last administered on 01/29/19at 08:19; Admin Dose 75 MG; Start 01/29/19 at 09:00; Status Hold Naproxen (Naprosyn) 500 mg BID PRN PO MILD PAIN LEVEL 1-3; Start 01/30/19 at 14:30 Polyethylene Glycol (Miralax) 17 gm BID GTB Last administered on 02/01/19at 08:46; Admin Dose 17 GM; Start 01/31/19 at 21:00 MEL [employer]NG [employer] WORKER Feb 01, 2019 11:52
--- NOTE | 2019-02-01 20:50 | PN ---
Date/Time of Note Date/Time of Note DATE: 02/01/19 TIME: 20:47 Assessment/Plan VTE Prophylaxis Risk score (from Ns)>0 risk: 6 SCD applied (from Ns): No SCD contraindicated: low risk/ambulating Pharmacological prophylaxis: LMWH Lines/Catheters IV Catheter Type (from [facility]): [place] line still needed: No Urinary Cath still in place: No Reason Cath still needed: urinary retention Assessment/Plan Assessment/Plan 1. Chest pain bilateral; radiating to the neck perspiration cardiology consult for further workup. 2. 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 Details are not very clear will obtain old chart. 3. Hypertension most of the time better controlled according to the patient 4. Obesity 5. Low back pain 6. Osteoarthritis of multiple joints 7. Hypothyroidism. 8 deep venous thrombosis of the right leg golf region. About 6 years ago. 9. Superficial phlebitis with frequent admissions to emergency room 10. History of having a herpes labialis infection of the leg. 11. Hearing impairment. 12 anxiety disorder. 13. Status post right knee arthroplasty 14. Anemia of chronic disease 15. Dizziness with recurrent episodes of fall 16. Unstable gait 17. Worsening of a shortness of breath 18; MRI of the brain :1. A 4 mm vascular flow void in the region of anterior communicating artery which is concerning for an aneurysm. 19.S/P thyroidectomy Result Diagram: 01/31/1951101/31/19511 Subjective 24 Hr Interval Summary Constitutional: improved, chills, poor po, requiring O2; No no complaints, No diaphoresis, No disoriented, No febrile, No requiring IVF, No other Eyes: redness; No no complaints, No pain, No discharge, No visual change, No other ENT: sore throat; No no complaints, No bleeding, No pain, No congestion, No discharge, No dysphagia, No other Respiratory: pain, cough, shortness of breath; No no complaints, No pleuritic pain, No sputum, No wheezing, No other Cardiovascular: chest pain, edema, lightheadedness, orthopenea, palpitations; No no complaints, No paroxysmal nocturnal dyspnea, No other Gastrointestinal: constipation, decreased appetite, passing stool; No no complaints, No pain, No blood, No diarrhea, No flatus, No nausea, No vomiting, No other Genitourinary: dysuria, discharge; No no complaints, No bleeding, No flank pain, No hematuria, No other Musculoskeletal: back pain, bone/joint pain, neck pain; No no complaints, No restricted range of motion, No swelling, No other Skin: laceration, pruritis, rash; No no complaints, No bruising, No erythema, No skin lesions, No other Neurologic: confusion, dizziness, headache; No no complaints, No focal-weakness, No syncope, No seizure, No other Exam/Review of Systems Exam Vitals Vital Signs Date Temp Pulse Resp B/P (MAP) Pulse Ox O2 O2 Flow FiO2 Time Delivery Rate 02/01/19 97.3 65 20 140/65 99 20:00 (90) 02/01/19 Room Air 16:02 02/01/19 2.0 07:46 Intake and Output 01/31/19 01/31/19 02/01/19 1515:00 23:00 07:00 IntakeIntake Total 700 ml 450 ml OutputOutput Total 800 ml BalanceBalance -100 ml 450 ml Constitutional: alert, oriented, well developed, distress, frail, obese; No non-verbal, No other Psych: No no complaints, No nl mood/affect, No anxiety, No confusion, No depression, No suicidal, No other Head: normocephalic, atraumatic; No lacerations, No hematomas, No other Eyes: EOMI, nl lids, PERRL; No nl conjunctiva, No nl sclera, No icteric, No fundi, disc, No other ENMT: nl lips & teeth, nl nasal mucosa & septum; No nl external ears & nose, No mucosa pink and moist, No intubated, No tympanic membranes, No other Neck: jvd, bruits, nuchal rigidity; No supple, No non-tender, No masses, No thyromegaly, No other Respiratory: clear to auscultation, normal air movement, congested cough, diminished breath sounds, labored breathing; No crackles/rales, No intercostal retraction, No respirations, No tactile fremitus, No wheezing, No other Cardiovascular: regular rate and rhythm, bruits; No nl pulses, No diastolic murmur, No edema, No gallop, No irregular rhythm, No jugular venous distention (JVD), No murmurs/extra sounds, No rub, No systolic murmur, No S3, No S4, No other Gastrointestinal: bowel sounds, distended; No soft, No nl liver, spleen, No non-tender, No ascites, No firm, No hepatomegaly, No mass, No rebound or guarding, No splenomegaly, No surgical scars, No tender, No other Genitourinary - Female: nl adnexae, nl external genitalia Musculoskeletal: nl gait and stance, joint tenderness, muscle tone, muscle weakness; No nl extremities to inspection, No range of motion, No spine non-tender, No swelling, No other Extremities: normal pulses Neurological: 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; No nl mental status, No nl speech, No nl strength, No confused, No DTR's symmetric, No focal weakness, No lethargic, No numbness, No reflexes, No u nresponsive, No other Skin: nl turgor, diaphoresis; No rash or lesions, No ecchymosis, No laceration, No puncture, No other Medications Medication Current Medications Amlodipine Besylate (Norvasc) 5 mg DAILY PO Last administered on 02/01/19 08:47; Admin Dose 5 MG; Start 01/28/19 at 21:00 Baclofen (Lioresal) 10 mg TID PO Last administered on 02/01/19 12:28; Admin Dose 10 MG; Start 01/28/19 at 21:00 Docusate Sodium (Colace) 100 mg DAILY PO Last administered on 02/01/19 08:47; Admin Dose 100 MG; Start 01/28/19 at 21:00 Gabapentin (Neurontin) 800 mg TID PO Last administered on 02/01/19 12:28; Admin Dose 800 MG; Start 01/28/19 at 21:00 Hydrochlorothiazide (Hydrochlorothiazide) 25 mg DAILY PO Last administered on 02/01/19 08:53; Admin Dose 25 MG; Start 01/28/19 at 21:00 Acetaminophen/ Hydrocodone Bitart ([place] (10/325)) 1 tab BID PRN PO PAIN LEVEL 6-10 Last administered on 02/01/19 04:53; Admin Dose 1 TAB; Start 01/28/19 at 18:30 Levothyroxine Sodium (Synthroid) 137 mcg BEFORE BREAKFAST PO Last administered on 02/01/19 06:43; Admin Dose 137 MCG; Start 01/29/19 at 07:00 Meclizine HCl (Antivert) 25 mg DAILY PRN PO DIZZINESS Last administered on 02/01/19 08:47; Admin Dose 25 MG; Start 01/28/19 at 18:30 Senna (Senokot) 1 tab DAILY PO Last administered on 02/01/19 08:46; Admin Dose 1 TAB; Start 01/28/19 at 21:00 Zolpidem Tartrate (Ambien) 10 mg QHS PRN PO INSOMNIA; Start 01/28/19 at 18:30 Pantoprazole (Protonix Tab) 40 mg BID@0600,1800 PO Last administered on 02/01/19 17:36; Admin Dose 40 MG; Start 01/28/19 at 21:00 Clopidogrel Bisulfate (plaVIX) 75 mg DAILY PO Last administered on 01/29/19 08:19; Admin Dose 75 MG; Start 01/29/19 at 09:00; Status Hold Naproxen (Naprosyn) 500 mg BID PRN PO MILD PAIN LEVEL 1-3; Start 01/30/19 at 14:30 Polyethylene Glycol (Miralax) 17 gm BID GTB Last administered on 02/01/19 08:46; Admin Dose 17 GM; Start 01/31/19 at 21:00 WILIAM JEAN BAPTISTE MD Feb 01, 2019 20:50
[2019-02-01] MEDS ORDERED: MAGNESIUM HYDROXIDE 30ML CUP PO PRN (21:30)
--- NOTE | 2019-02-01 22:38 | CONS ---
DATE OF ADMISSION: 01/28/2019 DATE OF CONSULTATION: HISTORY OF PRESENT ILLNESS: The patient is a 78-year-old status post syncopal attack. The patient h ad MRI and the MRI shows aneurysm followed by Neurosurgery consult, Dr. Ferrer's team. CURRENT MEDICATIONS: Include: 1. Baclofen 10 mg 3 times a day. 2. Synthroid 137 mcg once a day. 3. Norvasc 5 mg once a day. 4. Colace 100 mg once a day. 5. Neurontin 800 mg 3 times a day. 6. Hydrochlorothiazide 25 mg once a day. 7. Protonix 40 mg once a day. 8. [place] 10/325 mg twice a day as needed. 9. Antivert 25 mg once a day. 10. Ambien 10 mg once a day. PHYSICAL EXAMINATION: GENERAL: Today, the patient is alert, awake, oriented, following simple commands. CRANIAL NERVES: Cranial nerve II: Pupils equal on both sides, reactive to light. Cranial nerves II I, IV, and : Extraocular muscles are intact without nystagmus. Cranial V: Equal sensation to fac e. Cranial nerve VII: Symmetrical face. Cranial nerve VIII: Decreased hearing bilaterally. Crani al IX and X: Elevates palate. Cranial nerve XI: Elevates shoulder 5/5. Cranial nerve XII: With s traight tongue. 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 Sensation decreased for glove and sock area for light touch and t emperature. COORDINATION: [id number] test intact. HEART: Regular rate and rhythm. LUNGS: Equal breath sounds. ABDOMEN: Soft, relaxed, nondistended, no tenderness. ASSESSMENT AND PLAN: 1. The patient is a 78-year-old status post syncopal attack underlying aneurysm followed by ne urosurgery team. 2. Underlying syncopal attack in which the patient is followed by cardiology with echocardiogram wit h an ejection fraction of 55%. 3. Underlying hypertension. Keep the blood pressure at the level of 140/90. 4. Underlying insomnia. Keep the patient Ambien 5 mg. 5. Status post low backache. Give the patient [place]. 6. Status post hypothyroidism. The patient levothyroxine 137 mcg once a day. 7. Underlying dizziness. Follow up the patient with meclizine 25 mg. Dictated By: CONRADO ISLAS/NTS Conf#: [id number] DID#: [id number] CC: WILIAM JEAN BAPTISTE MD;*[facility]*
[2019-02-02] VITALS (8 sets, daily range): BP systolic 109–122; BP diastolic 53–60; PULSE 61–75; RESP 18–19
[2019-02-02] MEDS: HYDROCODONE/APAP (10/325) TAB PO PRN (00:26)
[2019-02-02] MEDS: PANTOPRAZOLE (EC) 40 MG TAB PO SCH (06:05)
[2019-02-02] MEDS: LEVOTHYROXINE 137 MCG TAB PO SCH (06:05)
[2019-02-02] MEDS: POLYETHYLENE GLYCOL 17 GM PACKET GTB SCH (07:59)
[2019-02-02] MEDS: SENNA TAB PO SCH (07:59)
[2019-02-02] MEDS: DOCUSATE SODIUM 100 MG CAP PO SCH (07:59)
[2019-02-02] MEDS: AMLODIPINE 5 MG TAB PO SCH (08:00)
[2019-02-02] MEDS: BACLOFEN 10 MG TAB PO SCH ×2 (08:00→13:10)
[2019-02-02] MEDS: GABAPENTIN 400 MG CAP PO SCH ×2 (08:00→13:10)
[2019-02-02] MEDS: HYDROCHLOROTHIAZIDE 25 MG TAB PO SCH (08:01)
--- NOTE | 2019-02-02 13:45 | DS ---
Date/Time of Note Date/Time of Note DATE: 02/02/19 TIME: 13:39 Discharge Summary Admission/Discharge Info Admit Date/Time Feb 02, 2019 at 11:02 Discharge Date/Time 06/2019 12:00 PM; Discharge Diagnosis 1. Chest pain bilateral; radiating to the neck perspiration cardiology consult for further workup. 2. 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 Further neurosurgical consult on follow-up.. 3. Hypertension most of the time better controlled according to the patient 4. Obesity 5. Low back pain 6. Osteoarthritis of multiple joints 7. Hypothyroidism. 8 deep venous thrombosis of the right leg golf region. About 6 years ago. 9. Superficial phlebitis with frequent admissions to emergency room 10. History of having a herpes labialis infection of the leg. 11. Hearing impairment. 12 anxiety disorder. 13. Status post right knee arthroplasty 14. Anemia of chronic disease 15. Dizziness with recurrent episodes of fall-persists. Unstable gait partial ly due to back pain partially due to weakness of the legs partially due to her dizziness which is not controlled. 16. Unstable gait 17. Worsening of a shortness of breath 18; MRI of the brain :1. A 4 mm vascular flow void in the region of anterior communicating artery which is concerning for an aneurysm. 19.S/P thyroidectomy Consults To neurology in 3 days To primary care physician in 5 days Neurosurgeon as soon as possible ENT consult as an outpatient Hx of Present Illness Chest pain bilaterally on and off compromising breathing and radiating to the neck.With a history of hypertension, gait difficulty, low back ache, dizzy spell, hypothyroidism, sleep difficulty, s/p multiple syncopal attack, she had recent episodes of 2 falls, Hospital Course The patient is fearful to get up. Even turning in her bed is making her dizziness worse. She was taken because she carries meclizine which is helping mildly. At this time of evaluation and management exact cause of her dizziness is not determined fully. Outpatient follow-up and management will be continued by involvement also of ENT and neurosurgeon. Discussed with Dr. Vasquez. Pain also is not controlled sufficiently yet. Discussed with the patient the step up therapy for pain management including further workup as an outpatient for osteoporosis. Had a conversation with daughter of patient about future plans. If dizziness get worse and she is unable to walk recommended to come back to hospital. Home Meds Reported Medications Sennosides* (Senna Lax*) 8.6 Mg Tablet, 1 TAB PO DAILY, TAB 01/28/19 Baclofen* (Baclofen*) 10 Mg Tablet, 10 MG PO TID, TAB 01/28/19 Meclizine Hcl* (Meclizine Hcl*) 25 Mg Tablet, 25 MG PO DAILY PRN for DIZZINESS, TAB 01/28/19 Gabapentin* (Gabapentin*) 800 Mg Tablet, 800 MG PO TID, #90 TAB 01/28/19 Levothyroxine Sodium* (Levothyroxine Sodium*) 137 Mcg Tablet, 137 MCG PO BEFORE BREAKFAST, #30 TAB 01/28/19 Amlodipine Besylate* (Norvasc*) 5 Mg Tablet, 5 MG PO DAILY, TAB 01/28/19 Hydrochlorothiazide* (Hydrochlorothiazide*) 25 Mg Tab, 25 MG PO DAILY, #30 TAB 01/28/19 Omeprazole* (Omeprazole*) 40 Mg Capsule.dr, 40 MG PO BID, #30 CAP 01/28/19 Hydrocodone/Acetaminophen ([place] 10-325 Tablet) 1 Each Tablet, 1 EACH PO BID, TAB 01/28/19 Zolpidem Tartrate* (Zolpidem Tartrate*) 10 Mg Tablet, 10 MG PO QHS PRN for INSOMNIA, #30 TAB 01/28/19 Aspirin* (Aspirin* EC) 81 Mg Tablet.dr, 81 MG PO DAILY, TAB 01/28/19 Docusate Sodium* (Colace*) 100 Mg Capsule, 100 MG PO DAILY, #30 CAP 01/28/19 Discontinued Reported Medications Levothyroxine Sodium* (Levothyroxine Sodium*) 137 Mcg Tablet, 137 MCG PO DAILY 03/11/13 Gabapentin* (Gabapentin*) 800 Mg Tablet, 800 MG PO QHS 07/22/11 Omeprazole (Omeprazole) 20 Mg Tablet.dr, 20 MG PO DAILY 07/22/11 Valsartan* (Diovan*) 80 Mg Tablet, 80 MG PO DAILY 07/22/11 Discontinued Scripts Naproxen* (Naprosyn*) 500 Mg Tablet, 500 MG PO BID PRN for PAIN AND/OR INFL AMMATION, #30 TAB Prov:PERRI CARPENTER MD 09/06/17 Follow-up Plan As above. Primary Care Provider Not On Staff Doctor Time spent on discharge: > 30 minutes WILIAM JEAN BAPTISTE MD Feb 02, 2019 13:45
--- NOTE | 2019-02-02 13:47 | PDOCDIS ---
Discharge Instructions DIAGNOSIS Discharge Diagnosis 1. Chest pain bilateral; radiating to the neck perspiration cardiology consult for further workup. 2. 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 Further neurosurgical consult on follow-up.. 3. Hypertension most of the time better controlled according to the patient 4. Obesity 5. Low back pain 6. Osteoarthritis of multiple joints 7. Hypothyroidism. 8 deep venous thrombosis of the right leg golf region. About 6 years ago. 9. Superficial phlebitis with frequent admissions to emergency room 10. History of having a herpes labialis infection of the leg. 11. Hearing impairment. 12 anxiety disorder. 13. Status post right knee arthroplasty 14. Anemia of chronic disease 15. Dizziness with recurrent episodes of fall-persists. Unstable gait partially due to back pain partially due to weakness of the legs partially due to her dizziness which is not controlled. 16. Unstable gait 17. Worsening of a shortness of breath 18; MRI of the brain :1. A 4 mm vascular flow void in the region of anterior communicating artery which is concerning for an aneurysm. 19.S/P thyroidectomy CONDITION [id number] Patient Condition: [id number] Guarded HOME CARE INSTRUCTIONS: [id number] Diet Instructions: [id number] FOLLOW UP/APPOINTMENTS Follow-up Plan As above. REFERRALS Other Referrals See above discharge summary. SCHOOL/WORK RELEASE May return to School/Work on: Feb 02, 2019 May return to School/Work with: None WILIAM JEAN BAPTISTE MD Feb 02, 2019 13:47
[2019-02-02] MEDS ORDERED: CARBOXYMETHYLCELLULOSE 0.5% 0.4 ML OPH BOTH EYES PRN (14:00)
--- NOTE | 2019-02-02 22:51 | HKNOTE ---
DATE OF SERVICE: HISTORY OF PRESENT ILLNESS: The patient is a 78-year-old status post acute dizzy spells, chest pain, brain aneurysm, hypertension, low back ache, osteoarthritis, hypothyroidism, superficial phlebitis, , right knee arthroplasty, anemia, dizziness, shortness of breath. CURRENT MEDICATIONS: 1. Baclofen 10 mg 3 times a day. 2. Synthroid 137 mcg once a day. 3. Norvasc 5 mg once a day. 4. Colace 100 mg once a day. 5. Neurontin 800 mg 3 times a day. 6. Hydrochlorothiazide 25 mg once a day. 7. Protonix 40 mg once a day. 8. [place] 10/325 mg twice a day. 9. Antivert 25 mg 3 times a day as needed. 10. Ambien 10 mg once a day. PHYSICAL EXAMINATION: GENERAL: The patient is alert, awake, oriented, following simple commands. CRANIAL NERVES: Cranial nerve II: Pupils equal on both sides, reactive to light. Cranial nerves II I, IV and : Extraocular muscles are intact without nystagmus. Cranial nerve V: Equal sensation t o face. Cranial nerve VII: Symmetrical face. Cranial nerve VIII: Decreased hearing bilaterally. Cranial nerve IX and X: Elevates palate. Cranial nerve XI: Elevates shoulder 5/5. Cranial nerve X II: With straight tongue. 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 Sensation decreased for glove and sock for light touch and temperature. COORDINATION: [id number] test intact. HEART: Regular rate and rhythm. LUNGS: Equal breath sounds. ABDOMEN: Soft, relaxed. ASSESSMENT AND PLAN: 1. The patient is a 78-year-old status post syncopal attack. 2. Underlying brain aneurysm which is stable. 3. Syncopal attack evaluation for cardiac reason, seen by Dr. Sosa. 4. Underlying hypertension. Keep the blood pressure at the level of 140/90. 5. Underlying insomnia. Keep the patient Ambien 5 mg once a day. 6. Status post low back ache. The patient on [place] 10/325 mg twice a day as needed. 7. Status post hypothyroidism which the patient is on Levothyroxine 137 mcg once a day. 8. Underlying dizzy spell. History of benign positional vertigo which the patient is on Meclizine 2 5 mg. Again, thank you, Dr. Jean Baptiste for asking me to see the patient with you. Dictated By: CONRADO MOHAMUD MD NA/NTS Conf#: [id number] DID#: [id number] CC: WILIAM JEAN BAPTISTE MD;*[facility]*
== END 2019-02-02 16:15 | disposition home or self-care (01) ==
LOC: E/R 09:02 → 6WM 12:47 → INTOOBSV 02-02 11:02 → OBSVTOIN 02-02 11:02
PROVIDERS: ADMIT Family Medicine; ATTEND Family Medicine
DX: R55 Syncope and collapse (principal); R07.9 Chest pain, unspecified; I67.1 Cerebral aneurysm, nonruptured; I10 Essential (primary) hypertension; E66.9 Obesity, unspecified; Z68.27 Body mass index [BMI] 27.0-27.9, adult; M54.5 Low back pain; M19.90 Unspecified osteoarthritis, unspecified site; E03.9 Hypothyroidism, unspecified; F41.9 Anxiety disorder, unspecified; Z96.651 Presence of right artificial knee joint; Z86.718 Personal history of other venous thrombosis and embolism; D53.9 Nutritional anemia, unspecified; Z79.82 Long term (current) use of aspirin; H91.90 Unspecified hearing loss, unspecified ear; R26.9 Unspecified abnormalities of gait and mobility
CPT/HCPCS: 36415; 36600; 70544; 70553; 71045; 72040; 72072; 72100; 72170; 80048; 80053; 82728; 82803; 83540; 83735; 84439; 84443; 84484; 85025; 93005; 93306; 93880; 97161; 97164; 99285; G0378

== ENCOUNTER 2019-06-01 08:47 | Day surgery (SDC) | payer MEDICARE, OTHER ==
[~2019-06-01] VITALS: Ht 149.9 cm; Wt 71.1 kg
[~2019-06-01 08:47] MED LIST changes: +AMLO5TAB4 PO; +ASPI-817 PO; +BACL10TA PO; +DOCU-144 PO; +HYDR-3980 PO; +HYDR25TA6 PO; +MECL-77 PO; -NAPR-985 PO; -OMEP20TA42 PO; +OMEP40CA6 PO; +POTASSIUM; +SENN-120 PO; -VALS80TA2 PO; +VICODIN; +ZOLP10TA5 PO
--- NOTE | 2019-06-01 09:29 | PREAC ---
Date/Time of Note Date/Time of Note DATE: 06/01/19 TIME: 09: Anesthesia Eval and Record Evaluation Time Pre-Procedure Interview DATE: 06/01/19 TIME: : Age 78 Sex female NPO: 8 hrs Preoperative diagnosis Abdominal pain Planned procedure EGD & biopsy Past Medical History Past Medical History: Includes Cardio: HTN, Dyslipidemia Endo: Hypothyroid GI: GERD, Morbid obesity Surgery & Anesthesia Issues No known issue Meds Anticoagulation: Yes Beta Vaughn within 24 hr: No Reason Beta Vaughn not given: Pt. not on B-Vaughn Reported Medications Sennosides* (Senna Lax*) 8.6 Mg Tablet, 1 TAB PO DAILY, TAB 01/28/19 Baclofen* (Baclofen*) 10 Mg Tablet, 10 MG PO TID, TAB 01/28/19 Meclizine Hcl* (Meclizine Hcl*) 25 Mg Tablet, 25 MG PO DAILY PRN for DIZZINESS, TAB 01/28/19 Gabapentin* (Gabapentin*) 800 Mg Tablet, 800 MG PO TID, #90 TAB 01/28/19 Levothyroxine Sodium* (Levothyroxine Sodium*) 137 Mcg Tablet, 137 MCG PO BEFORE BREAKFAST, #30 TAB 01/28/19 Amlodipine Besylate* (Norvasc*) 5 Mg Tablet, 5 MG PO DAILY, TAB 01/28/19 Hydrochlorothiazide* (Hydrochlorothiazide*) 25 Mg Tab, 25 MG PO DAILY, #30 TAB 01/28/19 Omeprazole* (Omeprazole*) 40 Mg Capsule.dr, 40 MG PO BID, #30 CAP 01/28/19 Hydrocodone/Acetaminophen ([place] 10-325 Tablet) 1 Each Tablet, 1 EACH PO BID, TAB 01/28/19 Zolpidem Tartrate* (Zolpidem Tartrate*) 10 Mg Tablet, 10 MG PO QHS PRN for INSOMNIA, #30 TAB 01/28/19 Aspirin* (Aspirin* EC) 81 Mg Tablet.dr, 81 MG PO DAILY, TAB 01/28/19 Docusate Sodium* (Colace*) 100 Mg Capsule, 100 MG PO DAILY, #30 CAP 01/28/19 Meds reviewed: Yes Allergies Coded Allergies: No Known Drug Allergy (Verified Allergy, Unknown, 01/28/19) Allergies Reviewed: Yes Labs/Studies Labs Reviewed: Reviewed by anesthesiologist test: N/A Studies: ECG Pre-procedure Exam Last vitals BP:122/67, P:78, Spo2:100%, T:98,8 Airway: Adequate mouth opening, Adequate thyromental dist Mallampati: Mallampati III Teeth: Normal Lung: Normal Heart: Normal ASA Physical Status ASA physical status: 3 Emergency: None Planned Anesthetic General/MAC: MAC Planned Pain Management Parenteral pain med Pre-operative Attestations Prior to commencing anesthesia and surgery, the patient was re-evaluated, there was verification of: *The patient's identity *The results of appropriate recent lab work and preoperative vital signs *The above evaluation not changing prior to induction *Anesthetic plan, risk benefits, alternative and complications discussed with patient/family; questions answered; patient/family understands, accepts and wishes to proceed. VAHID REAL MD Jun 01, 2019 09:29
[2019-06-01] MEDS ORDERED: LIDOCAINE 2% (SDV) 5 ML INJ ONE (09:31)
[2019-06-01] MEDS ORDERED: PROPOFOL 40 ML ONE (09:31)
[2019-06-01 09:35] VITALS: Ht 149.9 cm; Wt 71.1 kg
[2019-06-01 09:42] VITALS: BP 120/59; PULSE 85; RESP 20
--- NOTE | 2019-06-01 10:21 | PAC ---
Date/Time of Note Date/Time of Note DATE: 06/01/19 TIME: 10:20 Post-Anesthesia Notes Post-Anesthesia Note Activity: WNL Respiratory function: WNL Cardiovascular function: WNL Mental status: Baseline Pain reasonably controlled: Yes Hydration appropriate: Yes Nausea/Vomiting absent: Yes Comments BP:112/67, P:67, Spo2:100% T:98,8 VAHID REAL MD Jun 01, 2019 10:21
[2019-06-01 10:25] VITALS: BP 133/66; PULSE 80; RESP 22
== END 2019-06-01 13:28 | disposition home or self-care (01) ==
LOC: GIL 08:47
PROVIDERS: ATTEND Internal Medicine Gastroenterology
DX: K29.70 Gastritis, unspecified, without bleeding (principal); I10 Essential (primary) hypertension; E03.9 Hypothyroidism, unspecified; E78.5 Hyperlipidemia, unspecified; Z79.82 Long term (current) use of aspirin
CPT/HCPCS: 88305; 88312